=== PATIENT | female | born 1960 | race Caucasian/White ===

== ENCOUNTER → 2016-09-25 | Outpatient (CLI) | payer OTHER ==
[2016-09-25 13:23] LABS: BASO # 0.1 K/mm3 (0.0-0.2); BASO % 1.2 % (0.0-1.0); EOS # 0.2 K/mm3 (0.0-0.50); EOS % 2.2 % (0.0-3.0); LARGE UNSTAINED CELL # 0.2 K/mm3 (0.0-0.4); LARGE UNSTAINED CELL % 2.2 % (0.0-4.0); LYMPH % 37.1 % (24.0-44.0); MEAN CORPUSCULAR HEMOGLOBIN 33.7 pg (27.0-33.0); MEAN CORPUSCULAR HGB CONC 35.3 g/dl (32.0-36.5); MEAN CORPUSCULAR VOLUME 95.5 fl (80.0-96.0); MONO # 0.5 K/mm3 (0.0-0.8); NEUTROPHILS # 4.2 K/mm3 (1.8-7.7); NEUTROPHILS % 51.3 % (36.0-66.0); PLATELET COUNT, AUTOMATED 263 k/mm3 (150-450); RED CELL DISTRIBUTION WIDTH 12.6 % (11.5-14.5); WHITE BLOOD COUNT 8.1 K/mm3 (4.0-10.0)
[2016-09-25 13:35] LABS: ALBUMIN 3.7 GM/DL (3.2-5.2); ALBUMIN/GLOBULIN RATIO 1.12 (1.00-1.93); ALKALINE PHOSPHATASE 111 U/L (45-117); ALT/SGPT 27 U/L (12-78); ANION GAP 8 MEQ/L (8-16); AST/SGOT 19 U/L (15-37); BILIRUBIN,TOTAL 0.5 MG/DL (0.2-1.0); BLOOD UREA NITROGEN 11 MG/DL (7-18); CALCIUM LEVEL 8.6 MG/DL (8.5-10.1); CARBON DIOXIDE LEVEL 27 MEQ/L (21-32); CHLORIDE LEVEL 106 MEQ/L (98-107); CHOLESTEROL LEVEL 240 MG/DL (<200); CREATININE FOR GFR 0.67 MG/DL (0.55-1.02); GLOMERULAR FILTRATION RATE > 60.0 (>51); GLUCOSE, FASTING 94 MG/DL (70-105); SODIUM LEVEL 141 MEQ/L (136-145); TRIGLYCERIDES LEVEL 109 MG/DL (<150)
== END ==
LOC: M WUC 11:23
PROVIDERS: ATTEND Family Medicine
DX: Z00.00 Encounter for general adult medical examination without abnormal findings (principal)

== ENCOUNTER → 2017-11-29 | Outpatient (REF) | payer OTHER ==
[2017-11-29 22:32] LABS: APPEARANCE, URINE CLEAR (CLEAR); BACTERIA, URINE AUTO NEGATIVE (NEGATIVE); BILIRUBIN, URINE AUTO NEGATIVE (NEGATIVE); BLOOD, URINE BLOOD 2+ (NEGATIVE); CALCIUM OXALATE CRYSTALS SMALL; COLOR, URINE YELLOW (YELLOW); GLUCOSE, URINE (UA) AUTO NEGATIVE (NEGATIVE); KETONE, URINE AUTO NEGATIVE (NEGATIVE); LEUKOCYTE ESTERASE, URINE AUTO NEGATIVE (NEGATIVE); NITRITE, URINE AUTO NEGATIVE (NEGATIVE); PROTEIN, URINE AUTO NEGATIVE (NEGATIVE); RBC, URINE AUTO 4 /HPF (0-3); SPECIFIC GRAVITY URINE AUTO 1.017 (1.002-1.035); SQUAMOUS EPITHELIAL CELL UR AU 0 /HPF (0-6); UROBILINOGEN, URINE AUTO 0.2 mg/dL (0.0-2.0); WBC, URINE AUTO 1 /HPF (0-3)
== END ==
LOC: M LAB REF 21:52
DX: N39.0 Urinary tract infection, site not specified (principal)
CPT/HCPCS: 81001

== ENCOUNTER 2018-05-02 10:13 | Day surgery (SDC) | payer OTHER ==
[~2018-05-02] VITALS: Ht 165.1 cm; Wt 78.7 kg
[~2018-05-02 10:13] MED LIST: BUPR150T3; HYOS125TA SL; IBUP200T45 PO; LIDOCAINE 2% INJ 100 MG/5 ML SDV (FOR ANES.) As Ordered ONE; PARO12.5; PROPOFOL 200 MG/20 ML VIAL As Ordered ONE
[2018-05-02] MEDS ORDERED: NS 1,000 ML IV ONE (11:15)
[2018-05-02] MEDS ORDERED: ePHEDrine SULFATE 25 MG/5 ML(5MG/ML) SYRINGE As Ordered ONE (12:04)
--- NOTE | 2018-05-02 12:27 | ROOR ---
Patient Name: Aleida Elaine Procedure Date: 05/02/2018 11:55 AM Date of : 1960 Age: 57 Room: [facility] Gender: Female Note Status: Finalized Procedure: Colonoscopy Indications: High risk colon cancer surveillance: Personal history of colonic polyps Providers: Jose Miguel HERNANDEZ MD Referring MD: TOMMIE SUERO MD Requesting Provider: Medicines: Monitored Anesthesia Care Complications: No immediate complications. Procedure: Pre-Anesthesia Assessment: - The heart rate, respiratory rate, oxygen saturations, blood pressure, adequacy of pulmonary ventilation, and response to care were monitored throughout the procedure. The Colonoscope was introduced through the anus and advanced to the cecum, identified by appendiceal orifice and ileocecal valve. The colonoscopy was somewhat difficult due to a tortuous colon. Successful completion of the procedure was aided by applying abdominal pressure. The patient tolerated the procedure well. The quality of the bowel preparation was good. Findings: The perianal and digital rectal examinations were normal. A 7 mm polyp was found in the mid ascending colon. The polyp was sessile. The polyp was removed with a cold snare. Resection and retrieval were complete. Three sessile polyps were found in the recto-sigmoid colon and sigmoid colon. The polyps were 3 to 5 mm in size. These polyps were removed with a cold snare. Resection and retrieval were complete. Multiple small and large-mouthed diverticula were found in the sigmoid colon. There was narrowing of the colon in association with the diverticular opening. There was evidence of diverticular spasm. Small Internal Hemorrhoids. The exam was otherwise without abnormality on direct and retroflexion views. Impression: - One 7 mm polyp in the mid ascending colon, removed with a cold snare. Resected and retrieved. - Three 3 to 5 mm polyps at the recto-sigmoid colon and in the sigmoid colon, removed with a cold snare. Resected and retrieved. - Moderate diverticulosis (w/ spasm) in the sigmoid colon. - Small Internal Hemorrhoids. - The examination was otherwise normal on direct and retroflexion views. Recommendation: - Telephone endoscopist for pathology results in 2 weeks. - If the pathology report reveals adenomatous tissue, then repeat the colonoscopy for surveillance in 3 - 5 years. - Await pathology results. Jose Miguel Hernandez MD Jose Miguel HERNANDEZ MD 05/02/2018 12:27:16 PM This report has been signed electronically. Number of Addenda: 0 Note Initiated On: 05/02/2018 11:55 AM Estimated Blood Loss: Estimated blood loss: none.
[2018-05-02 12:53] VITALS: BP 96/54
== END 2018-05-02 12:55 | disposition home or self-care (01) ==
LOC: M OPP 10:13
PROVIDERS: ATTEND Internal Medicine Gastroenterology
DX: Z12.11 Encounter for screening for malignant neoplasm of colon (principal); Z86.010 Personal history of colon polyps; D12.2 Benign neoplasm of ascending colon; K63.5 Polyp of colon; K64.8 Other hemorrhoids; K57.30 Diverticulosis of large intestine without perforation or abscess without bleeding; F17.210 Nicotine dependence, cigarettes, uncomplicated; Z79.899 Other long term (current) drug therapy; Z80.3 Family history of malignant neoplasm of breast

== ENCOUNTER → 2018-11-11 | Outpatient (REF) | payer OTHER ==
[~2018-11-11] MED LIST changes: -LIDOCAINE 2% INJ 100 MG/5 ML SDV (FOR ANES.) As Ordered ONE; -PROPOFOL 200 MG/20 ML VIAL As Ordered ONE
[2018-11-15 14:29] LABS: HPV HYBRID CAPTURE II Negative (Negative)
== END ==
LOC: M LAB REF 13:35
PROVIDERS: ATTEND Physician Assistant
DX: Z01.419 Encounter for gynecological examination (general) (routine) without abnormal findings (principal)

== ENCOUNTER → 2018-12-23 | Outpatient (CLI) | payer OTHER ==
[~2018-12-23] MED LIST changes: +E-Z-GAS II EFFERVESCENT PACKET (SODIUM BICARB./CITRIC ACID/SIMETHICONE) As Ordered ONE; +E-Z-HD 98% w/w 340GM SUSP BTL As Ordered ONE; +E-Z-PAQUE 96% w/w SUSP 176GM BTL As Ordered ONE
--- NOTE | 2018-12-23 16:51 | REP ---
DOUBLE CONTRAST ESOPHAGRAM: [employer] film of the chest is unremarkable. Double contrast esophagram is performed. Swallowing mechanism is normal. There is prompt passage of liquid barium through the oropharynx and hypopharynx into the esophagus. The esophagus is well-distended with normal contour, caliber and peristalsis. There is no stricture or mass. There is free flow of barium through the gastroesophageal junction. There is no evidence of a hiatal hernia. I do not see gastroesophageal reflux during this exam. IMPRESSION: Negative esophagram study. 0.7 minutes fluoroscopy time utilized. Electronically Signed by Orlando Ramesh MD 12/26/2018 05:00 P
== END ==
LOC: M RAD 09:22
PROVIDERS: ATTEND Physician Assistant Medical
DX: R30.0 Dysuria (principal)

== ENCOUNTER 2019-04-14 12:46 | Day surgery (SDC) | payer OTHER ==
[~2019-04-14] VITALS: Ht 165.1 cm; Wt 73.4 kg
[~2019-04-14 12:46] MED LIST changes: -E-Z-GAS II EFFERVESCENT PACKET (SODIUM BICARB./CITRIC ACID/SIMETHICONE) As Ordered ONE; -E-Z-HD 98% w/w 340GM SUSP BTL As Ordered ONE; -E-Z-PAQUE 96% w/w SUSP 176GM BTL As Ordered ONE; +ESCI5SOL3 PO; +LIDOCAINE 2% INJ 100 MG/5 ML SDV (FOR ANES.) As Ordered ONE; -PARO12.5; +PARO12.510; +propofoL 200 MG/20 ML VIAL As Ordered ONE
[2019-04-14] MEDS ORDERED: NS 1,000 ML IV ONE (13:45)
--- NOTE | 2019-04-14 14:34 | ROOR ---
Patient Name: Aleida Elaine Procedure Date: 04/14/2019 2:18 PM Date of : 1960 Age: 58 Room: [facility] Gender: Female Note Status: Finalized Procedure: Upper GI endoscopy Indications: Oral phase dysphagia (sensation of food material in left neck, sometimes spits out food particles. No difficulty swallowing, no heartburn. Barium swallow is normal-no evidence of zenker) Providers: Jose Miguel READ MD Referring MD: YULY Landis Requesting Provider: Medicines: Monitored Anesthesia Care Complications: No immediate complications. Procedure: Pre-Anesthesia Assessment: - The heart rate, respiratory rate, oxygen saturations, blood pressure, adequacy of pulmonary ventilation, and response to care were monitored throughout the procedure. The Endoscope was introduced through the mouth, and advanced to the second part of duodenum. The upper GI endoscopy was accomplished without difficulty. The patient tolerated the procedure well. Findings: The esophagus was normal. The stomach was normal. The examined duodenum was normal. Impression: - Normal esophagus. - Normal stomach. - Normal examined duodenum. - No specimens collected. Recommendation: - Observe patient's clinical course. Jose Miguel Read MD Jose Miguel READ MD 04/14/2019 2:34:03 PM Electronically signed by Jose Miguel READ MD Number of Addenda: 0 Note Initiated On: 04/14/2019 2:18 PM Estimated Blood Loss: Estimated blood loss: none.
[2019-04-14 14:40] VITALS: BP 102/55
== END 2019-04-14 15:05 | disposition home or self-care (01) ==
LOC: M OPP 12:46
PROVIDERS: ATTEND Internal Medicine Gastroenterology
DX: R13.11 Dysphagia, oral phase (principal); F17.210 Nicotine dependence, cigarettes, uncomplicated; Z79.899 Other long term (current) drug therapy

== ENCOUNTER → 2020-09-09 | Outpatient (CLI) | payer OTHER ==
[~2020-09-09] MED LIST changes: +BUPR150T12; -BUPR150T3; -LIDOCAINE 2% INJ 100 MG/5 ML SDV (FOR ANES.) As Ordered ONE; -propofoL 200 MG/20 ML VIAL As Ordered ONE
--- NOTE | 2020-09-09 11:31 | REP ---
INDICATION: COUGH AND SHORTNESS OF BREATH. COMPARISON: None. FINDINGS: The superior mediastinal structures are midline. The cardiac silhouette is unremarkable in size, shape, and position. The diaphragmatic surfaces of the lungs are regular, and the costophrenic angles are clear. The pulmonary fritz are clear. The imaged osseous structures are intact. IMPRESSION: There is no acute cardiopulmonary disease. <Electronically signed by Scooby Rome > 09/09/20 [id number]
[2020-09-09 14:55] LABS: ALBUMIN 3.5 GM/DL (3.2-5.2); ALT/SGPT 18 U/L (12-78); BILIRUBIN,TOTAL 0.3 MG/DL (0.2-1.0); BLOOD UREA NITROGEN 13 MG/DL (7-18); CALCIUM LEVEL 8.8 MG/DL (8.5-10.1); CARBON DIOXIDE LEVEL 31 MEQ/L (21-32); CHLORIDE LEVEL 107 MEQ/L (98-107); CHOLESTEROL LEVEL 200 MG/DL (<200); CREATININE FOR GFR 0.59 MG/DL (0.55-1.30); GLOMERULAR FILTRATION RATE > 60.0 (>51); GLUCOSE, FASTING 121 MG/DL (70-100); HDL CHOLESTEROL 66 MG/DL (>40); LDL CHOLESTEROL 109 MG/DL (<100); NON-HDL-C 134 MG/DL; SODIUM LEVEL 142 MEQ/L (136-145); TOTAL PROTEIN 6.8 GM/DL (6.4-8.2); TRIGLYCERIDES LEVEL 127 MG/DL (<150)
[2020-09-09 15:12] LABS: BASO # 0.1 10^3/uL (0.0-0.2); BASO % 0.7 % (0.0-1.0); EOS # 0.3 10^3/uL (0.0-0.5); EOS % 3.2 % (0.0-3.0); HEMATOCRIT 45.7 % (36.0-47.0); HEMOGLOBIN 14.7 g/dl (12.0-15.5); LYMPH # 2.8 10^3/uL (1.5-5.0); LYMPH % 33.5 % (24.0-44.0); MEAN CORPUSCULAR HGB CONC 32.2 g/dl (32.0-36.5); MEAN CORPUSCULAR VOLUME 99.6 fl (80.0-96.0); MONO # 0.7 10^3/uL (0.0-0.8); MONO % 8.7 % (2.0-8.0); NEUTROPHILS # 4.5 10^3/uL (1.5-8.5); NEUTROPHILS % 53.7 % (36.0-66.0); PLATELET COUNT, AUTOMATED 283 10^3/uL (150-450); RED BLOOD COUNT 4.59 10^6/uL (4.00-5.40); WHITE BLOOD COUNT 8.4 10^3/uL (4.0-10.0)
== END ==
LOC: M WUC 10:26
PROVIDERS: ATTEND Nurse Practitioner Family
DX: R05 Cough (principal); R06.02 Shortness of breath; E78.2 Mixed hyperlipidemia

== ENCOUNTER → 2020-10-08 | Outpatient (CLI) | payer OTHER ==
--- NOTE | 2020-10-08 15:41 | REP ---
INDICATION: NICOTINE DEPEND. COMPARISON: Chest x-ray 09/09/2020 TECHNIQUE: Low-dose CT lung screening protocol FINDINGS: There is a 3.9 mm nodule subpleural region right upper lobe on image 21 scattered small areas of ground-glass opacity are seen in the right mid upper lung zone, the largest on image 30 measuring 9.7 mm. Some minor dependent atelectatic changes in the deep sulcus of the right lung otherwise clear. The medial aspect left upper lobe on image 19 shows a 5 mm ground-glass opacity without solid component. I do not see other significant findings on the left side. IMPRESSION: 1. 4 mm nodule subpleural right upper lobe anterolaterally on image 21 and some bilateral ground-glass opacities right mid and left upper lobe ranging from 4-6 mm. Findings represent lung RADS category 2 benign, benign findings. No evidence of malignancy. Patients with this category of scan findings have less than 1% chance of malignancy at the time of the examination. For patients at high risk of development of lung cancer, low-dose CT lung screening annually recommended. <Electronically signed by Jj Pham > 10/08/20 [id number]
== END ==
LOC: M RAD 13:45
PROVIDERS: ATTEND Nurse Practitioner Family
DX: Z12.2 Encounter for screening for malignant neoplasm of respiratory organs (principal); F17.200 Nicotine dependence, unspecified, uncomplicated; R91.8 Other nonspecific abnormal finding of lung field

== ENCOUNTER → 2020-10-15 | Outpatient (CLI) | payer OTHER ==
[2020-10-15 20:12] LABS: BASO # 0.1 10^3/uL (0.0-0.2); BASO % 0.8 % (0.0-1.0); EOS # 0.2 10^3/uL (0.0-0.5); EOS % 2.3 % (0.0-3.0); HEMATOCRIT 44.8 % (36.0-47.0); HEMOGLOBIN 14.7 g/dl (12.0-15.5); LYMPH # 3.5 10^3/uL (1.5-5.0); LYMPH % 39.4 % (24.0-44.0); MEAN CORPUSCULAR HEMOGLOBIN 31.9 pg (27.0-33.0); MEAN CORPUSCULAR HGB CONC 32.8 g/dl (32.0-36.5); MEAN CORPUSCULAR VOLUME 97.2 fl (80.0-96.0); MONO # 0.8 10^3/uL (0.0-0.8); MONO % 8.7 % (2.0-8.0); NEUTROPHILS # 4.3 10^3/uL (1.5-8.5); NEUTROPHILS % 48.6 % (36.0-66.0); PLATELET COUNT, AUTOMATED 295 10^3/uL (150-450); RED BLOOD COUNT 4.61 10^6/uL (4.00-5.40); WHITE BLOOD COUNT 8.8 10^3/uL (4.0-10.0)
[2020-10-15 20:29] LABS: ALBUMIN 3.7 GM/DL (3.2-5.2); ALT/SGPT 68 U/L (12-78); AMYLASE 66 U/L (25-115); BILIRUBIN,TOTAL 0.3 MG/DL (0.2-1.0); BLOOD UREA NITROGEN 14 MG/DL (7-18); CALCIUM LEVEL 8.7 MG/DL (8.5-10.1); CARBON DIOXIDE LEVEL 31 MEQ/L (21-32); CHLORIDE LEVEL 105 MEQ/L (98-107); GLOMERULAR FILTRATION RATE > 60.0 (>51); GLUCOSE, FASTING 126 MG/DL (70-100); LIPASE 180 U/L (73-393); POTASSIUM SERUM 3.8 MEQ/L (3.5-5.1); SODIUM LEVEL 140 MEQ/L (136-145); TOTAL PROTEIN 6.9 GM/DL (6.4-8.2)
== END ==
LOC: M WUC 15:56
PROVIDERS: ATTEND Nurse Practitioner Family
DX: R10.11 Right upper quadrant pain (principal)

== ENCOUNTER → 2020-10-28 | Outpatient (CLI) | payer OTHER ==
[~2020-10-28] MED LIST changes: +ADV250INH INH; +ALBU8.5H INH; +FLUTISP INH; -IBUP200T45 PO; +IBUP200T46 PO; -PARO12.510; +PARO12.56; +XANA0.25 PO
== END ==
LOC: M RAD 07:40
PROVIDERS: ATTEND Nurse Practitioner Family
DX: K80.20 Calculus of gallbladder without cholecystitis without obstruction (principal); R10.11 Right upper quadrant pain

== ENCOUNTER → 2021-01-01 | Outpatient (CLI) | payer OTHER ==
[~2021-01-01] MED LIST changes: +IBUP200T45 PO; -IBUP200T46 PO; +PARO12.510; -PARO12.56
== END ==
LOC: M LABSMTC 09:21
PROVIDERS: ATTEND Anesthesiology
DX: Z01.812 Encounter for preprocedural laboratory examination (principal); Z11.52 Encounter for screening for COVID-19

== ENCOUNTER 2021-01-06 10:47 | Day surgery (SDC) | payer OTHER ==
[~2021-01-06] VITALS: Ht 165.1 cm; Wt 84.7 kg
[~2021-01-06 10:47] MED LIST changes: -IBUP200T45 PO; +IBUP200T46 PO; +KETOROLAC 60MG 2ML VIAL As Ordered ONE; +LIDOCAINE 1% MDV 20ML VIAL SQ PRN; +LR 1,000 ML IV ONE; +SUGAMMADEX SODIUM 500 MG/5 ML VIAL (BRIDION) As Ordered ONE
--- OUTSIDE RECORDS SUMMARY | 2021-01-06 10:51 | CCD ---
Author Author [facility] Organization [facility] Address Unknown Phone Unavailable Care Team Providers Care Tie Cutter Name Role Phone Nagi Nemaha Latha PA-C Unavailable Unavailabl e Petrancosta, Nemaha Latha PA-C Unavailable Unavailabl e Petrancosta, Nemaha Latha PA-C Unavailable Unavailabl e Petrancosta, Nemaha Latha PA-C Unavailable Unavailabl e Petrancosta, Nemaha Latha PA-C Unavailable Unavailabl e Petrancosta, Nemaha Latha PA-C Unavailable Unavailabl e Petrancosta, Nemaha Latha PA-C Unavailable Unavailabl e Petrancosta, Nemaha Latha PA-C Unavailable Unavailabl e Petrancosta, Nemaha Latha PA-C Unavailable Unavailabl e Petrancosta, Nemaha Latha PA-C Unavailable Unavailabl e Petrancosta, Nemaha Latha PA-C Unavailable Unavailabl e Petrancosta, Nemaha Latha PA-C Unavailable Unavailabl e Petrancosta, Nemaha Latha PA-C Unavailable Unavailabl e Petrancosta, Nemaha Latha PA-C Unavailable Unavailabl e Petrancosta, Nemaha Latha PA-C Unavailable Unavailabl e Petrancosta, Nemaha Latha PA-C Unavailable Unavailabl e Petrancosta, Nemaha Latha PA-C Unavailable Unavailabl e Petrancosta, Nemaha Latha PA-C Unavailable Unavailabl e Petrancosta, Nemaha Latha PA-C Unavailable Unavailabl e Petrancosta, Nemaha Latha PA-C Unavailable Unavailabl e Petrancosta, Nemaha Latha PA-C Unavailable Unavailabl e Petrancosta, Nemaha Latha PA-C Unavailable Unavailabl e Petrancosta, Nemaha Latha PA-C Unavailable Unavailabl e Petrancosta, Nemaha Latha PA-C Unavailable Unavailabl e Petrancosta, Nemaha Latha PA-C Unavailable Unavailabl e Pleskach, Jeana MEAT GRINDER Unavailable Unavailable Pleskach, Jeana MEAT GRINDER Unavailable Unavailable Pleskach, Jeana MEAT GRINDER Unavailable Unavailable Pleskach, Jeana MEAT GRINDER Unavailable Unavailable Pleskach, Jeana MEAT GRINDER Unavailable Unavailable Pleskach, Jeana MEAT GRINDER Unavailable Unavailable Pleskach, Jeana MEAT GRINDER Unavailable Unavailable Pleskach, Jeana MEAT GRINDER Unavailable Unavailable Pleskach, Jeana MEAT GRINDER Unavailable Unavailable Pleskach, Jeana MEAT GRINDER Unavailable Unavailable Pleskach, Jeana MEAT GRINDER Unavailable Unavailable Pleskach, Jeana MEAT GRINDER Unavailable Unavailable Pleskach, Jeana MEAT GRINDER Unavailable Unavailable Pleskach, Jeana MEAT GRINDER Unavailable Unavailable Pleskach, Jeana MEAT GRINDER Unavailable Unavailable Pleskach, Jeana MEAT GRINDER Unavailable Unavailable Pleskach, Jeana MEAT GRINDER Unavailable Unavailable Pleskach, Jeana MEAT GRINDER Unavailable Unavailable Pleskach, Jeana MEAT GRINDER Unavailable Unavailable Pleskach, Jeana MEAT GRINDER Unavailable Unavailable Pleskach, Jeana MEAT GRINDER Unavailable Unavailable Pleskach, Jeana MEAT GRINDER Unavailable Unavailable Pleskach, Jeana MEAT GRINDER Unavailable Unavailable Pleskach, Jeana MEAT GRINDER Unavailable Unavailable Pleskach, Jeana MEAT GRINDER Unavailable Unavailable Pleskach, Jeana MEAT GRINDER Unavailable Unavailable Pleskach, Jeana MEAT GRINDER Unavailable Unavailable Pleskach, Jeana MEAT GRINDER Unavailable Unavailable Pleskach, Jeana MEAT GRINDER Unavailable Unavailable Pleskach, Jeana MEAT GRINDER Unavailable Unavailable Pleskach, Jeana MEAT GRINDER Unavailable Unavailable Pleskach, Jeana MEAT GRINDER Unavailable Unavailable Pleskach, Jeana MEAT GRINDER Unavailable Unavailable Pleskach, Jeana MEAT GRINDER Unavailable Unavailable Pleskach, Jeana MEAT GRINDER Unavailable Unavailable Pleskach, Jeana MEAT GRINDER Unavailable Unavailable Pleskach, Jeana MEAT GRINDER Unavailable Unavailable Pleskach, Jeana MEAT GRINDER Unavailable Unavailable Pleskach, Jeana MEAT GRINDER Unavailable Unavailable Pleskach, Jeana MEAT GRINDER Unavailable Unavailable Pleskach, Jeana MEAT GRINDER Unavailable Unavailable Pleskach, Jeana MEAT GRINDER Unavailable Unavailable BRYDEN, A PALLAVI DO Unavailable Unavailable BRYDEN, A PALLAVI DO Unavailable Unavailable BRYDEN, A PALLAVI DO Unavailable Unavailable BRYDEN, A PALLAVI DO Unavailable Unavailable BRYDEN, A PALLAVI DO Unavailable Unavailable BRYDEN, A PALLAVI DO Unavailable Unavailable BRYDEN, A PALLAVI DO Unavailable Unavailable BRYDEN, A PALLAVI DO Unavailable Unavailable BRYDEN, A PALLAVI DO Unavailable Unavailable BRYDEN, A PALLAVI DO Unavailable Unavailable BRYDEN, A PALLAVI DO Unavailable Unavailable BRYDEN, A PALLAVI DO Unavailable Unavailable BRYDEN, A PALLAVI DO Unavailable Unavailable BRYDEN, A PALLAVI DO Unavailable Unavailable BRYDEN, A PALLAVI DO Unavailable Unavailable BRYDEN, A PALLAVI DO Unavailable Unavailable BRYDEN, A PALLAVI DO Unavailable Unavailable BRYDEN, A PALLAVI DO Unavailable Unavailable BRYDEN, A PALLAVI DO Unavailable Unavailable BRYDEN, A PALLAVI DO Unavailable Unavailable BRYDEN, A PALLAVI DO Unavailable Unavailable BRYDEN, A PALLAVI DO Unavailable Unavailable BRYDEN, A PALLAVI DO Unavailable Unavailable BRYDEN, A PALLAVI DO Unavailable Unavailable BRYDEN, A PALLAVI DO Unavailable Unavailable BRYDEN, A PALLAVI DO Unavailable Unavailable BRYDEN, A PALLAVI DO Unavailable Unavailable BRYDEN, A PALLAVI DO Unavailable Unavailable BRYDEN, A PALLAVI DO Unavailable Unavailable Johnston, M Christopher PA-C Unavailable Unavailable Johnston, M Christopher PA-C Unavailable Unavailable Johnston, M Christopher PA-C Unavailable Unavailable Johnston, M Christopher PA-C Unavailable Unavailable Johnston, M Christopher PA-C Unavailable Unavailable Johnston, M Christopher PA-C Unavailable Unavailable Johnston, M Christopher PA-C Unavailable Unavailable Johnston, M Christopher PA-C Unavailable Unavailable Johnston, M Christopher PA-C Unavailable Unavailable Johnston, M Christopher PA-C Unavailable Unavailable Johnston, M Christopher PA-C Unavailable Unavailable Johnston, M Christopher PA-C Unavailable Unavailable Johnston, M Christopher PA-C Unavailable Unavailable Johnston, M Christopher PA-C Unavailable Unavailable Johnston, M Christopher PA-C Unavailable Unavailable Johnston, M Christopher PA-C Unavailable Unavailable Johnston, M Christopher PA-C Unavailable Unavailable Johnston, M Christopher PA-C Unavailable Unavailable Johnston, M Christopher PA-C Unavailable Unavailable Johnston, M Christopher PA-C Unavailable Unavailable Johnston, Edda Christopher PA-C Unavailable Unavailable Johnston, M Christopher PA-C Unavailable Unavailable Johnston, M Christopher PA-C Unavailable Unavailable Johnston, M Christopher PA-C Unavailable Unavailable Johnston, M Christopher PA-C Unavailable Unavailable Johnston, M Christopher PA-C Unavailable Unavailable Re-disclosure Warning The records that you are about to access may contain information from federally-assisted alcohol or drug abuse programs. If such information is present, then the following federally mandated warning applies: This information has been disclosed to you from records protected by federal confidentiality rules (42 CFR part 2). The federal rules prohibit you from making any further disclosure of this information unless further disclosure is expressly permitted by the written consent of the person to whom it pertains or as otherwise permitted by 42 CFR part 2. A general authorization for the release of medical or other information is NOT sufficient for this purpose. The Federal rules restrict any use of the information to criminally investigate or prosecute any alcohol or drug abuse patient.The records that you are about to access may contain highly sensitive health information, the redisclosure of which is protected by Article 27-F of the [facility] Public Health law. If you continue you may have access to information: Regarding HIV / AIDS; Provided by facilities licensed or operated by the [facility] Office of Mental Health; or Provided by the [facility] Office for People With Developmental Disabilities. If such information is present, then the following [facility] mandated warning applies: This information has been disclosed to you from confidential records which are protected by state law. State law prohibits you from making any further disclosure of this information without the specific written consent of the person to whom it pertains, or as otherwise permitted by law. Any unauthorized further disclosure in violation of state law may result in a fine or long-term sentence or both. A general authorization for the release of medical or other information is NOT sufficient authorization for further disc losure. Family History Family Member Name Family Member Gender Family Member Status Date o f Status Description Data Source(s) Unknown Unknown Problem [facility] ([facility], ) Unknown Unknown Problem [facility] ([facility] Encounters Encounter Providers Location Date Indications Data Source(s ) Outpatient Attender: Jeana Cotton [facility] Main Office 12/24/2020 0 8:45:00 AM EDT [facility] ([facility] Outpatient Attender: Christopher Johnston PA-C 12/04/2020 03:24:44 PM EDT - 12/04/2020 04:51:12 PM EDT [facility] ([facility]) Outpatient Attender: PALLAVI Forbes/Magdalene/Jaime/Derek ndl 11/12/2020 02:45:00 PM EDT [facility] ([facility], ) Outpatient Attender: Jeana Cotton [facility] Main Office 10/15/2020 0 1:45:00 PM EDT [facility] ([facility] Outpatient Attender: Jeana Cotton [facility] Main Office 09/09/2020 0 8:00:00 AM EDT [facility] ([facility] Outpatient Attender: Latha Lazar PA-C Main Office 06/17/2020 03:30:00 PM EDT [facility] ([facility] Outpatient Attender: Jeana Cotton [facility] Main Office 05/22/2020 0 3:00:00 PM EST [facility] ([facility] Outpatient Attender: Jeana Cotton [facility] Main Office 03/06/2020 0 7:00:00 AM EST [facility] ([facility] Outpatient Attender: Jeana Cotton [facility] Main Office 12/26/2019 0 8:15:00 AM EDT [facility] ([facility] Outpatient Attender: Jeana Cotton [facility] Main Office 11/23/2019 1 0:30:00 AM EDT [facility] ([facility] Immunizations Vaccine Date Status Description Data Source(s) Pfizer-Sars-(Covid-19) vaccine, mRNA, LNP-S, PF, 30 mc g/ 0.3 mL 05/09/2020 02:56:00 PM EST completed [facility] COVID-19 VACCINE Pfizer 05/09/2020 12:00:00 AM EST completed [facility] Vaccine Series Complete: YESThis Data wa s Submitted to [facility] Via [employer]. Pfizer-Sars-(Covid-19) vaccine, mRNA, LNP-S, PF, 30 mc g/ 0.3 mL 04/11/2020 02:56:00 PM EST completed [facility] COVID-19 VACCINE Pfizer 04/11/2020 12:00:00 AM EST completed [facility] Vaccine Series Complete: NOThis Data was Submitted to [facility] [employer]. New in 2012. IIV4 12/26/2019 08:27:00 AM EDT completed [facility] ([facility] pneumococcal polysaccharide PPV23 11/23/2019 11:03:00 AM EDT comple chris [facility] ([facility] Medications Medication Brand Name Start Date Product Form Dose Route Admi nistrative Instructions Pharmacy Instructions Status Indications Reaction Description Data Source(s) Fluticasone Propionate Fluticasone Propionate 09/09/2020 12:00:00 AM E DT active [facility] ([facility] Escitalopram 20 MG Oral Tablet ESCITALOPRAM OXALATE 08/13/2020 1 2:00:00 AM EDT tablet 30 TAKE ONE TABLET BY MOUTH EVERY D AY TAKE ONE TABLET BY MOUTH EVERY DAY SOLD: 08/13/2020 [facility] Azithromycin 250 MG Oral Tablet AZITHROMYCIN 06/17/2020 12:00:00 AM EDT tablet 6 TAKE TWO TABLETS BY MOUTH AT ONCE ON THE FIRST DAY THEN TAKE ONE DAILY THEREAFTER TAKE TWO TABLETS BY MOUTH AT ONCE ON THE FIRST DAY THEN TAKE ONE DAILY THEREAFTER SOLD: 06/17/2020 [facility] Azithromycin 250 MG Oral Tablet Azithromycin 06/17/2020 12:00:00 AM E DT ORAL completed [facility] ([facility] Alprazolam 0.25 MG Oral Tablet ALPRAZOLAM 05/22/2020 12:00:00 AM EST tablet 10 TAKE 1/2 TABLET BY MOUTH NEEDED FOR A NXIETY UP TO TWICE DAILY MAXIMUM DAILY DOSE = 1 TAKE 1/2 TABLET BY MOUTH NEEDED FOR A NXIETY UP TO TWICE DAILY MAXIMUM DAILY DOSE = 1 SOLD: 05/22/2020 [facility] 100 mg 02/08/2020 12:00:00 AM EST tablet 14 TAKE ONE TABLET BY MOUTH TWICE A DAY FOR 7 DAYS TAKE ONE TABLET BY MOUTH TWICE A DAY FOR 7 DAYS SOLD: 2019 [facility] Ciprofloxacin 3 MG/ML Ophthalmic Solution Ciprofloxacin HCL 12/26/2019 12:00:00 AM EDT OPHTHALMIC completed [facility] ([facility] 0.3 % 12/26/2019 12:00:00 AM EDT drops 5 INSTILL 1-2 DROPS INTO THE RIGHT EYE 5 TIMES A DAY FOR 5 DAYS INSTILL 1-2 DROPS INTO THE RIGHT EYE 5 T IMES A DAY FOR 5 DAYS SOLD: 12/26/2019 [facility] 24 HR Bupropion Hydrochloride 150 MG Extended Release Oral T ablet BUPROPION HCL 11/23/2019 12:00:00 AM EDT tablet extended release 24 hr 60 TAKE ONE TABLET BY MOUTH TWICE A DAY TAKE ONE TABLET BY MOUTH TWICE A DAY SOLD: 11/29/2019 [facility] Escitalopram 20 MG Oral Tablet ESCITALOPRAM OXALATE 11/23/2019 1 2:00:00 AM EDT tablet 30 TAKE ONE TABLET BY MOUTH EVERY D AY TAKE ONE TABLET BY MOUTH EVERY DAY SOLD: 02/20/2020 [facility] 24 HR Bupropion Hydrochloride 150 MG Extended Release Oral T ablet BUPROPION HCL 11/23/2019 12:00:00 AM EDT tablet extended release 24 hr 60 TAKE ONE TABLET BY MOUTH TWICE A DAY TAKE ONE TABLET BY MOUTH TWICE A DAY SOLD: 05/09/2020 [facility] 250-50 mcg/dose 11/23/2019 12:00:00 AM EDT blister with viky ce 60 INHALE ONE PUFF BY MOUTH TWICE A DAY INHALE ONE PUFF BY MOUTH TWICE A DAY SOLD: 11/29/2019 [facility] Escitalopram 20 MG Oral Tablet ESCITALOPRAM OXALATE 11/23/2019 1 2:00:00 AM EDT tablet 30 TAKE ONE TABLET BY MOUTH EVERY D AY TAKE ONE TABLET BY MOUTH EVERY DAY SOLD: 05/09/2020 [facility] 60 ACTUAT Fluticasone propionate 0.25 MG /ACTUAT / salmeterol 0.05 MG/ACTUAT Dry Powder Inhaler [Advair] 250-50 mcg/dose FLUTICASONE PROPION/SALMETEROL 11/23/2019 12:00:00 AM EDT blister with device 60 I NHALE ONE PUFF BY MOUTH TWICE A DAY INHALE ONE PUFF BY MOUTH TWICE A DAY SOLD: 08/13/2020 [facility] 24 HR Bupropion Hydrochloride 150 MG Extended Release Oral T ablet BUPROPION HCL 11/23/2019 12:00:00 AM EDT tablet extended release 24 hr 60 TAKE ONE TABLET BY MOUTH TWICE A DAY TAKE ONE TABLET BY MOUTH TWICE A DAY SOLD: 02/20/2020 [facility] Escitalopram 20 MG Oral Tablet ESCITALOPRAM OXALATE 11/23/2019 1 2:00:00 AM EDT tablet 30 TAKE ONE TABLET BY MOUTH EVERY D AY TAKE ONE TABLET BY MOUTH EVERY DAY SOLD: 01/11/2020 [facility] Escitalopram 20 MG Oral Tablet ESCITALOPRAM OXALATE 11/23/2019 1 2:00:00 AM EDT tablet 30 TAKE ONE TABLET BY MOUTH EVERY D AY TAKE ONE TABLET BY MOUTH EVERY DAY SOLD: 11/29/2019 [facility] Escitalopram 20 MG Oral Tablet Escitalopram Oxalate 11/23/2019 1 2:00:00 AM EDT ORAL active [facility] ( [facility] 24 HR Bupropion Hydrochloride 150 MG Extended Release Oral T ablet BUPROPION HCL 11/23/2019 12:00:00 AM EDT tablet extended release 24 hr 60 TAKE ONE TABLET BY MOUTH TWICE A DAY TAKE ONE TABLET BY MOUTH TWICE A DAY SOLD: 04/01/2020 [facility] 24 HR Bupropion Hydrochloride 150 MG Extended Release Oral T ablet BUPROPION HCL 11/23/2019 12:00:00 AM EDT tablet extended release 24 hr 60 TAKE ONE TABLET BY MOUTH TWICE A DAY TAKE ONE TABLET BY MOUTH TWICE A DAY SOLD: 08/13/2020 [facility] Escitalopram 20 MG Oral Tablet ESCITALOPRAM OXALATE 11/23/2019 1 2:00:00 AM EDT tablet 30 TAKE ONE TABLET BY MOUTH EVERY D AY TAKE ONE TABLET BY MOUTH EVERY DAY SOLD: 06/22/2020 [facility] Escitalopram 20 MG Oral Tablet ESCITALOPRAM OXALATE 11/23/2019 1 2:00:00 AM EDT tablet 30 TAKE ONE TABLET BY MOUTH EVERY D AY TAKE ONE TABLET BY MOUTH EVERY DAY SOLD: 04/01/2020 [facility] 24 HR Bupropion Hydrochloride 150 MG Extended Release Oral T ablet BUPROPION HCL 11/23/2019 12:00:00 AM EDT tablet extended release 24 hr 60 TAKE ONE TABLET BY MOUTH TWICE A DAY TAKE ONE TABLET BY MOUTH TWICE A DAY SOLD: 01/11/2020 [facility] 250-50 mcg/dose 11/23/2019 12:00:00 AM EDT blister with viky ce 60 INHALE ONE PUFF BY MOUTH TWICE A DAY INHALE ONE PUFF BY MOUTH TWICE A DAY SOLD: 05/09/2020 [facility] Cephalexin 500 MG Oral Tablet Cephalexin 09/05/2019 12:00:00 AM EDT ORAL completed [facility] ([facility] Insurance Providers Payer name Policy type / Coverage type Policy ID Covered democrat ID Covered democrat's relationship to herrera Policy Herrera Plan Information [employer] [id number] Self [id number] [employer] [facility] [place] [id number] S [id number] [facility] [employer] Commercial [id number] Self [id number] [employer] [facility] [place] [id number] SP [id number] [facility] [id number] Self [id number] [facility] [employer] [facility] Commercial [id number] Self [id number] [facility] Commercial [id number] Self [id number] [facility] Commercial [id number] Self [id number] [facility] [id number] Self [id number] [facility] [id number] Self [id number] [employer] [id number] S [id number] [facility] [employer] [facility] Commercial [id number] Self [id number] [facility] [employer] Commercial [id number] Self [id number] [facility] Commercial [id number] Self [id number] [facility] Commercial [id number] Self [id number] [facility] [employer] [facility] Commercial [id number] Self [facility] [id number] SP [id number] Problems, Conditions, and Diagnoses Code Display Name Description Problem Type Effective Dates Data Source(s) J44.9 Chronic obstructive lung disease Chronic obstructive l checo disease Problem 03/06/2020 12:00:00 AM EST [facility] ([facility] Surgeries/Procedures Procedure Description Date Indications Data Source(s) OFFICE OUTPATIENT VISIT 25 MINUTES 12/24/2020 12:00:00 AM EDT [facility] ([facility] OFFICE OUTPATIENT NEW 45 MINUTES 11/12/2020 12:00:00 A M EDT [facility] ([facility], ) OFFICE OUTPATIENT VISIT 25 MINUTES 10/15/2020 12:00:00 AM EDT [facility] ([facility] ECG ROUTINE ECG W/LEAST 12 LDS W/I&R 09/09/2020 12:00: 00 AM EDT [facility] ([facility] OFFICE OUTPATIENT VISIT 25 MINUTES 09/09/2020 12:00:00 AM EDT [facility] ([facility] OFFICE OUTPATIENT VISIT 15 MINUTES 06/17/2020 12:00:00 AM EDT [facility] ([facility] OFFICE OUTPATIENT VISIT 15 MINUTES 05/22/2020 12:00:00 AM EST [facility] ([facility] Brief Emotional/Behav Assessment W/ Scoring Doc Per Standard Inst 11/23/2019 12:00:00 AM EDT [facility] ([facility] Results ID Date Data Source [id number] 12/04/2020 03:30:00 PM EDT [facility] Name Value Range Interpretation Code Description Data Jennifer rce(s) Supporting Document(s) SARS-CoV-2 RNA Resp Ql ADELSO+probe NOT DETECTED [facility] This lab was ordered by MICHAEL johnson and reported by MICHAEL Da Silva. ID Date Data Source [id number] 10/15/2020 03:57:00 PM EDT [facility] ([facility] Name Value Range Interpretation Code Description Data Jennifer rce(s) Supporting Document(s) Amylase [Enzymatic activity/volume] in Serum or Plasma 66 U/L 25- 115 [facility] ([facility] Lipoprotein lipase [Enzymatic activity/volume] in Serum or P lasma 180 U/L 73-393 [facility] ([facility] ID Date Data Source [id number] 10/15/2020 03:57:00 PM EDT [facility] ([facility] Name Value Range Interpretation Code Description Data Jennifer rce(s) Supporting Document(s) White Blood Count 8.8 10 4.0-10.0 [facility] ([facility] Red Blood Count 4.61 10 4.00-5.40 [facility] ([facility] Hemoglobin 14.7 g/dL 12.0-15.5 [facility] ([facility] Mean Corpuscular Hemoglobin 31.9 pg 27.0-33.0 [facility] ([facility] Mean Corpuscular Volume 97.2 fl 80.0-96.0 M [facility] ([facility] Hematocrit 44.8 % 36.0-47.0 [facility] ([facility] Red Cell Distribution Width 13.2 % 11.5-14.5 [facility] ([facility] Mean Corpuscular HGB Conc 32.8 g/dL 32.0-36.5 [facility] ([facility] Platelet Count, Automated 295 10 150-450 [facility] ([facility] [place] % 8.7 % 2.0-8.0 [facility] ([facility] Neutrophils % 48.6 % 36.0-66.0 [facility] ([facility] Lymph % 39.4 % 24.0-44.0 [facility] Eos % 2.3 % 0.0-3.0 [facility] ([facility] Immature Granulocyte % 0.2 % 0-3.0 [facility] ([facility] Baso % 0.8 % 0.0-1.0 [facility] ([facility] Lymph # 3.5 10 1.5-5.0 [facility] Neutrophils # 4.3 10 1.5-8.5 [facility] ([facility] Nucleated Red Blood Cell % 0.0 % 0-0 [facility] ([facility] Eos # 0.2 10 0.0-0.5 [facility] [place] # 0.8 10 0.0-0.8 [facility] ([facility] Baso # 0.1 10 0.0-0.2 [facility] ([facility] ID Date Data Source [id number] 10/15/2020 03:57:00 PM EDT [facility] ([facility] Name Value Range Interpretation Code Description Data Jennifer rce(s) Supporting Document(s) Glucose, Fasting 126 mg/dL 70-100 [facility] ([facility] Blood Urea Nitrogen 14 mg/dL 7-18 [facility] ([facility] Creatinine For GFR 0.80 mg/dL 0.55-1.30 [facility] ([facility] Glomerular Filtration Rate Laboratory test result [facility] ([facility] <content>Units are mL/min/1.73 m2</content>
<content></content>
<content>Chronic Kidney Disease Staging per NKF:</content>
<content></content>
<content>Stage I & II GFR >=60 Normal to Mildly Decreased</content>
<content>Stage III GFR 30-59 Moderately Decreased</content>
<content>Stage IV GFR 15-29 Severely Decreased</content>
<content>Stage V GFR <15 Very Little GFR Left</content>
<content>ESRD GFR <15 on [employer]</content>
<content></content> Potassium Serum 3.8 meq/L 3.5-5.1 [facility] ([facility] Chloride Level 105 meq/L 98-107 [facility] ([facility] Sodium Level 140 meq/L 136-145 [facility] ([facility] Calcium Level 8.7 mg/dL 8.5-10.1 [facility] ([facility] Anion Gap 4 meq/L 8-16 [facility] ([facility] Carbon Dioxide Level 31 meq/L 21-32 [facility] ([facility] Ast/Sgot 20 U/L 7-37 [facility] Alt/SGPT 68 U/L 12-78 [facility] Total Protein 6.9 GM/DL 6.4-8.2 [facility] ([facility] Bilirubin,Total 0.3 mg/dL 0.2-1.0 [facility] ([facility] Alkaline Phosphatase 101 U/L 45-117 [facility] ([facility] Albumin 3.7 GM/DL 3.2-5.2 [facility] ([facility] Albumin/Globulin Ratio 1.2 1.2-2.2 [facility] ([facility] ID Date Data Source [id number] 09/09/2020 10:27:00 AM EDT [facility] ([facility] Name Value Range Interpretation Code Description Data Jennifer rce(s) Supporting Document(s) Cholesterol Level 200 mg/dL [facility] ([facility] Triglycerides Level 127 mg/dL [facility] ([facility] LDL Cholesterol 109 mg/dL [facility] ([facility] HDL Cholesterol 66 mg/dL [facility] ([facility] Non-HDL-C 134 mg/dL [facility] Cholesterol Risk Ratio 3.030 [facility] ([facility] ID Date Data Source [id number] 09/09/2020 10:27:00 AM EDT [facility] ([facility] [facility] Name Value Range Interpretation Code Description Data Jennifer e(s) Supporting Document(s) Glucose, Fasting 121 mg/dL 70-100 [facility] ([facility] Blood Urea Nitrogen 13 mg/dL 7-18 [facility] ([facility] Creatinine For GFR 0.59 mg/dL 0.55-1.30 [facility] ([facility] Glomerular Filtration Rate Laboratory test result [facility] ([facility] <content>Units are mL/min/1.73 m2</content>
<content></content>
<content>Chronic Kidney Disease Staging per NKF:</content>
<content></content>
<content>Stage I & II GFR >=60 Normal to Mildly Decreased</content>
<content>Stage III GFR 30-59 Moderately Decreased</content>
<content>Stage IV GFR 15-29 Severely Decreased</content>
<content>Stage V GFR <15 Very Little GFR Left</content>
<content>ESRD GFR <15 on [employer]</content>
<content></content> Carbon Dioxide Level 31 meq/L 21-32 [facility] ([facility]st [facility] Potassium Serum 4.0 meq/L 3.5-5.1 [facility] ([facility] Sodium Level 142 meq/L 136-145 [facility] ([facility] Chloride Level 107 meq/L 98-107 [facility] ([facility] Anion Gap 4 meq/L 8-16 [facility] ([facility] Ast/Sgot 17 U/L 7-37 [facility] ([facility] Calcium Level 8.8 mg/dL 8.5-10.1 [facility] ([facility] Bilirubin,Total 0.3 mg/dL 0.2-1.0 [facility] ([facility] Alkaline Phosphatase 100 U/L 45-117 [facility] ([facility] Alt/SGPT 18 U/L 12-78 [facility] ([facility] Total Protein 6.8 GM/DL 6.4-8.2 [facility] ([facility] Albumin 3.5 GM/DL 3.2-5.2 [facility] ([facility] Albumin/Globulin Ratio 1.1 1.2-2.2 [facility] ([facility] ID Date Data Source [id number] 09/09/2020 10:27:00 AM EDT [facility] ([facility] Name Value Range Interpretation Code Description Data Jennifer rce(s) Supporting Document(s) White Blood Count 8.4 10 4.0-10.0 [facility] ([facility]sey [facility] Red Blood Count 4.59 10 4.00-5.40 [facility] ([facility] Hemoglobin 14.7 g/dL 12.0-15.5 [facility] ([facility] Hematocrit 45.7 % 36.0-47.0 [facility] ([facility] Mean Corpuscular Hemoglobin 32.0 pg 27.0-33.0 [facility] ([facility] Mean Corpuscular Volume 99.6 fl 80.0-96.0 M [facility] ([facility] Mean Corpuscular HGB Conc 32.2 g/dL 32.0-36.5 [facility] ([facility] Platelet Count, Automated 283 10 150-450 [facility] ([facility] Neutrophils % 53.7 % 36.0-66.0 [facility] ([facility] Red Cell Distribution Width 13.6 % 11.5-14.5 [facility] ([facility] Lymph % 33.5 % 24.0-44.0 [facility] ([facility] [place] % 8.7 % 2.0-8.0 [facility] ([facility] Immature Granulocyte % 0.2 % 0-3.0 [facility] ([facility] Baso % 0.7 % 0.0-1.0 [facility] ([facility] Eos % 3.2 % 0.0-3.0 [facility] ([facility] Neutrophils # 4.5 10 1.5-8.5 [facility] ([facility] Nucleated Red Blood Cell % 0.0 % 0-0 [facility] ([facility] Lymph # 2.8 10 1.5-5.0 [facility] ([facility] [place] # 0.7 10 0.0-0.8 [facility] ([facility] Baso # 0.1 10 0.0-0.2 [facility] ([facility] Eos # 0.3 10 0.0-0.5 [facility] ([facility] ID Date Data Source [id number] 09/09/2020 08:26:00 AM EDT [facility] ([facility] Name Value Range Interpretation Code Description Data Jennifer rce(s) Supporting Document(s) Electrocardiogram Laboratory test result [facility] ([facility] ID Date Data Source [id number] 02/08/2020 12:00:00 AM EST [facility] Name Value Range Interpretation Code Description Data Jennifer rce(s) Supporting Document(s) SARS-CoV2 Rapid Antigen [facility] This lab was ordered by [facility] and reported by [facility]. Procedure Social History No Information Vital Signs ID Date Data Source UNK Name Value Range Interpretation Code Description Data Source(s) Systolic blood pressure 117 mm[Hg] 117 mm[Hg] M [facility] ([facility] Diastolic blood pressure 75 mm[Hg] 75 mm[Hg] [facility] ([facility] Heart rate 88 /min 88 /min [facility] ([facility] Body temperature 97.0 [degF] 97.0 [degF] [facility] ([facility] Respiratory rate 16 /min 16 /min [facility] ( [facility] Body height 65.5 [in_i] 65.5 [in_i] [facility] ([facility]uy [facility] 5'5.50" Body weight 189.38 [lb_av] 189.38 [lb_av] [facility] T ([facility] Oxygen saturation in Arterial blood by Pulse oximetry 98 % 98 % [facility] ([facility] [place] body weight 125 [lb_av] 125 [lb_av] [facility] T ([facility] Body mass index (BMI) [Ratio] 31.0 kg/m2 31.0 k g/m2 [facility] ([facility] Systolic blood pressure 128 mm[Hg] 128 mm[Hg] [facility] ([facility]) Body weight 188.12 [lb_av] 188.12 [lb_av] MED[facility] T ([facility]) Body mass index (BMI) [Ratio] 31.3 kg/m2 31.3 k g/m2 [facility] ([facility]) [place] body weight 125 [lb_av] 125 [lb_av] [facility] T ([facility]) Diastolic blood pressure 74 mm[Hg] 74 mm[Hg] [facility] ([facility]) Body temperature 95.6 [degF] 95.6 [degF] [facility] ([facility]) Body height 65 [in_i] 65 [in_i] [facility] ([facility]) 5'5" Body weight 85.334 kg 85.334 kg [facility] ([facility]) Body surface area Derived from formula 1.93 m2 1.93 m2 [facility] ([facility]) [place] body weight 125 [lb_av] 125 [lb_av] [facility] T ([facility] Body mass index (BMI) [Ratio] 30.7 kg/m2 30.7 k g/m2 [facility] ([facility] Body temperature 97.7 [degF] 97.7 [degF] [facility] ([facility] Body weight 187.12 [lb_av] 187.12 [lb_av] [facility] T ([facility] Heart rate 96 /min 96 /min [facility] ([facility] Systolic blood pressure 117 mm[Hg] 117 mm[Hg] M EDENT ([facility] Diastolic blood pressure 76 mm[Hg] 76 mm[Hg] [facility] ([facility] Respiratory rate 14 /min 14 /min [facility] ( [facility] Body height 65.5 [in_i] 65.5 [in_i] [facility] ([facility] 5'5.50" [place] body weight 125 [lb_av] 125 [lb_av] [facility] T ([facility] Body mass index (BMI) [Ratio] 31.0 kg/m2 31.0 k g/m2 [facility] ([facility] Systolic blood pressure 109 mm[Hg] 109 mm[Hg] M ED[facility] ([facility] Diastolic blood pressure 78 mm[Hg] 78 mm[Hg] [facility] ([facility] Heart rate 102 /min 102 /min [facility] ([facility] Body temperature 98.4 [degF] 98.4 [degF] [facility] ([facility] Respiratory rate 16 /min 16 /min [facility] ( [facility] Body height 65.5 [in_i] 65.5 [in_i] [facility] ([facility] 5'5.50" Body weight 189.38 [lb_av] 189.38 [lb_av] [facility] T ([facility] [place] body weight 125 [lb_av] 125 [lb_av] [facility] T ([facility] Diastolic blood pressure 85 mm[Hg] 85 mm[Hg] [facility] ([facility] Systolic blood pressure 114 mm[Hg] 114 mm[Hg] [facility] ([facility] Respiratory rate 18 /min 18 /min [facility] ( [facility] Body height 65.5 [in_i] 65.5 [in_i] [facility] ([facility] 5'5.50" Body weight 187.12 [lb_av] 187.12 [lb_av] [facility] T ([facility] Oxygen saturation in Arterial blood by Pulse oximetry 98 % 98 % [facility] ([facility] Body mass index (BMI) [Ratio] 30.7 kg/m2 30.7 k g/m2 [facility] ([facility] Heart rate 90 /min 90 /min [facility] ([facility] Body temperature 97.5 [degF] 97.5 [degF] [facility] ([facility] Diastolic blood pressure 81 mm[Hg] 81 mm[Hg] [facility] ([facility] Body height 65.5 [in_i] 65.5 [in_i] [facility] ([facility] 5'5.50" Body temperature 96.5 [degF] 96.5 [degF] [facility] ([facility] Respiratory rate 18 /min 18 /min [facility] ( [facility] Body weight 183.38 [lb_av] 183.38 [lb_av] [facility] T ([facility] Systolic blood pressure 123 mm[Hg] 123 mm[Hg] M ED[facility] ([facility] Heart rate 91 /min 91 /min [facility] ([facility] Oxygen saturation in Arterial blood by Pulse oximetry 98 % 98 % [facility] ([facility] [place] body weight 125 [lb_av] 125 [lb_av] [facility] T ([facility] Body mass index (BMI) [Ratio] 30.0 kg/m2 30.0 k g/m2 [facility] ([facility] Systolic blood pressure 121 mm[Hg] 121 mm[Hg] M [facility] ([facility] Diastolic blood pressure 76 mm[Hg] 76 mm[Hg] [facility] ([facility] Heart rate 88 /min 88 /min [facility] ([facility] Body mass index (BMI) [Ratio] 29.3 kg/m2 29.3 k g/m2 [facility] ([facility] Body temperature 96.7 [degF] 96.7 [degF] [facility] ([facility] Body height 65 [in_i] 65 [in_i] [facility] ([facility] 5'5" Body weight 176.25 [lb_av] 176.25 [lb_av] [facility] T ([facility] Oxygen saturation in Arterial blood by Pulse oximetry 96 % 96 % [facility] ([facility] [place] body weight 125 [lb_av] 125 [lb_av] [facility] T ([facility] Respiratory rate 16 /min 16 /min [facility] ( [facility] Systolic blood pressure 118 mm[Hg] 118 mm[Hg] M ED[facility] ([facility] [place] body weight 125 [lb_av] 125 [lb_av] [facility] T ([facility] Body mass index (BMI) [Ratio] 29.2 kg/m2 29.2 k g/m2 [facility] ([facility] Diastolic blood pressure 76 mm[Hg] 76 mm[Hg] [facility] ([facility] Heart rate 103 /min 103 /min [facility] ([facility] Body temperature 98.6 [degF] 98.6 [degF] [facility] ([facility] Respiratory rate 15 /min 15 /min [facility] ( [facility] Body height 65 [in_i] 65 [in_i] [facility] ([facility] 5'5" Body weight 175.38 [lb_av] 175.38 [lb_av] [facility] T ([facility]
--- OUTSIDE RECORDS SUMMARY | 2021-01-06 10:51 | CCD | Continuity of Care Document ---
Author Author Aleida RANKIN DO Organization Unknown Address [address], [address] [place] [address] Phone [phone] Care Team Providers Care Manager Policy Name Role Phone Jeana Cotton N.P. AUTM [phone] AUTM Unavailable Hallie Shaver M.D. AUTM [phone] Problems Description No Active Problems Social History Type Date Description Comments Sex Unknown ETOH Use 1 A Week Tobacco Use Start: 03/22/78 Smokes 1 Pack A Day Recreational Drug Use Denies Drug Use Tobacco Use Start: Unknown Report Cessation Counseling Was Provided Allergies, Adverse Reactions, Alerts Description No Known Drug Allergies Medications Active Medications SIG Qnty Indications Ordering Provide r Date Bupropion HCL SR 150mg Tablets ER 12HR 1tab po qd 60tabs Unknown Lexapro 10mg Tablets 1 by mouth every day Unknown Advair Diskus 250-50mcg/Dose Aeros ol 1 puff twice a day Unknown Albuterol Sulfate HFA 108(90Base) mcg/Act Aerosol inhale two puffs by mouth four times a day as needed Unknown Alprazolam 0.25mg Tablets 1 tab by mouth every day Unknown Flonase Allergy Relief 50mcg/Act Suspension 2 sprays per nostril daily Unknown 0 Immunizations Description No Information Available Vital Signs Date Vital Result Comment 11/12/2020 2:45pm BP Systolic 128 mmHg BP Diastolic 74 mmHg Body Temperature 95.6 F Height 65 inches 5'5" Weight 188.12 lb BMI (Body Mass Index) 31.3 kg/m2 [place] Body Weight 125 lb Weight 85.334 kg BSA (Body Surface Area) 1.93 m2 12/06/2018 8:38am BP Systolic 104 mmHg BP Diastolic 78 mmHg Height 65 inches 5'5" Weight 158.00 lb BMI (Body Mass Index) 26.3 kg/m2 [place] Body Weight 125 lb Weight 71.669 kg BSA (Body Surface Area) 1.79 m2 Results Description No Information Available Procedures Description No Information Available Medical Devices Description No Information Available Encounters Description No Information Available Assessments Description No Information Available Plan of Treatment 12/06/2018 - SELMA Del Rosario* R13.10 Dysphagia, unspecified * * New Orders:* Endoscopy with possible dilation, Ordered: 12/06/18 * Comments:* Will arrange for upper endoscopy and possible dilation. Reviewed risks and benefits of the procedure, as well as other options, with the patient. Prep for this procedure was discussed with patient. Patient verbalized understanding of all of the above and is in agreement to proceed. Patient will seek medical attention for any acute changes. Will monitor. * Follow up:* As scheduled, sooner if needed. Functional Status Description No Information Available Mental Status Description No Information Available Referrals Refer to Reason for Referral Status Appt Date Orlando Rankin D.O. GALL[facility]ONES Scheduled 11/13/[address] [place] [phone]
--- OUTSIDE RECORDS SUMMARY | 2021-01-06 10:51 | CCD | Continuity of Care Document ---
Author Author Aleida RANKIN DO Organization Unknown Address [address], [address] [place] [address] Phone [phone] Care Team Providers Care Epoxy Coatings Installer Name Role Phone Jeana Cotton N.P. AUTM [phone] AUTM Unavailable Hallie Shaver M.D. AUTM [phone] Problems Description No Active Problems Social History [...] lb BMI (Body Mass Index) 31.3 kg/m2 [place] Body Weight 125 lb Weight 85.334 kg BSA (Body Surface Area) 1.93 m2 12/06/2018 8:38am BP Systolic 104 mmHg BP Diastolic 78 mmHg Height 65 inches 5'5" Weight 158.00 lb BMI (Body Mass Index) 26.3 kg/m2 [place] Body Weight 125 lb Weight 71.669 kg BSA (Body Surface Area) 1.79 m2 Results Description No Information Available Procedures Date Code Description Status 11/12/2020 74493 Office/Outpatient New Moderate M DM 45-59 Minutes Completed Medical Devices Description No Information Available Encounters Type Date Location Provider Dx Diagnosis Office Visit 11/12/2020 2:45p [facility] Orlando Rankin DO K80.20 Calculus of gallbladder w/o cholecystiti s w/o obstruction Assessments Date Code Description Provider 11/12/2020 K80.20 Calculus of gallblad mya without cholecystitis without obstruction Orlando Rankin DO Plan of Treatment Future Appointment(s):* 01/20/2021 9:30 am - YULY Woodruff at [facility] * 01/06/2021 7:30 am - Orlando Rankin DO at [facility] 11/12/2020 - Orlando Rankin DO* K80.20 Calculus of gallbladder without cholecystitis without obstruction* Comments:* 60 y/o female w/ symptomatic cholelithiasis. Recommendation at this time is to proceed with robotic assisted lap jean-paul. Risks and benefits of the procedure were discussed in detail with her and informed consent was obtained. The risks include, but are not limited to, bleeding, infection, hernia, need for traditional laparoscopic or open surgery, and possibility of damaging surrounding structures. She understands the risks, and elects to proceed with sx. Functional Status Description No Information Available Mental Status Description No Information Available Referrals Refer to Reason for Referral Status Appt Date Orlando Rankin D.O. GALL[facility]ONES Scheduled 11/13/[address] [place] [address] [phone]
--- OUTSIDE RECORDS SUMMARY | 2021-01-06 10:51 | CCD | Continuity of Care Document ---
Author Author Aleida COTTON [facility] Organization Unknown Address [address] [place] [address] Phone [phone] Care Team Providers Care Energy Infrastructure Engineer Name Role Phone Brenda Gastro - Gastroenterology AUTM Lovely RaiW AUTM [phone] Tamar Shaver AUTM [phone] Problems Active Problems Provider Date Chronic obstructive lung disease Jeana Cotton FNP Onset: 03/06/2020 Mixed hyperlipidemia Christopher Thrasher M.D. Onset: 10/02 Social History Type Date Description Comments Sex Unknown Tobacco Use Start: Unknown Never Used Smokeless Tobacco ETOH Use Denies alcohol use Tobacco Use Start: 03/22/77 Patient is a current smoker, smo kes every day smokes 1 ppd Recreational Drug Use Never Used Drugs Smoking Status Reviewed: 10/15/20 Patient is a current smoker, smokes every day smokes 1 ppd Exercise Type/Frequency Exercises regularly Seat Belt/Car Seat Always uses seat belt Bike Helmet Always Guns in Home Yes, Locked Up Smoke Alarms Yes Smoke Alarms Carbon Monoxide Detector: Yes Allergies, Adverse Reactions, Alerts Description No Known Drug Allergies Medications Active Medications SIG Qnty Indications Ordering Provide r Date Fluticasone Propionate 50mcg/Act Suspension two sprays each side of nose daily 48gm J31.0 Jeana Grider ch, FNP 09/09/2020 Escitalopram Oxalate 20mg Tablets take one tablet by mouth every day 90tabs Jeana Cotton FNP 0 11/23/2019 Albuterol Sulfate HFA 108(90Base) mcg/Act Aerosol inhale two puffs by mouth every 4 hours as needed 25.5gm J20.9 Jeana Cotton, PROFESSIONAL SERVICES CONSULTANT 04/11/2019 Advair Diskus 250-50mcg/Dose Aeros ol 1 puff twice a day 180units J44.1 Jeana Cototn, PROFESSIONAL SERVICES CONSULTANT 02/07/2019 Alprazolam 0.25mg Tablets 1/2 tablet by mouth as needed for anxiety up to twice daily 10tabs Pl Jeana brody, PROFESSIONAL SERVICES CONSULTANT 10/05/2018 Bupropion Hydrochloride ER (XL) 150mg Tablets ER 24HR take one tablet by mouth once a day 90tabs Jeana Callahan, PROFESSIONAL SERVICES CONSULTANT 10/03/2018 Sudafed 30mg Tablets u se as directed prn Unknown History Medications Azithromycin 250mg Tablets take 2 tabs by mouth x 1 day, then one tab by mouth daily for remaining days 6tabs J32.9 Latha Lazar PA 06/17/2020 - 09/09/2020 Immunizations CPT Code Status Date Vaccine Lot # [id number] Given 05/09/2020 Pfizer-Sars-(Cov id-19) vaccine, mRNA, LNP-S, PF, 30 mcg/ 0.3 mL 42807 Given 04/11/2020 Pfizer-Sars-(Cov id-19) vaccine, mRNA, LNP-S, PF, 30 mcg/ 0.3 mL [id number] Given 12/26/2019 Influenza Virus Vaccine, Quadrivalent,age 3 and up,multidose vial [id number] Given 11/23/2019 Pneumococcal Vaccine [id number] 39441 Given 11/11/2018 Boostrix (Tdap) Tetnus, Diphtheria Toxoids & Acellular Pertussis [id number] Given 01/10/2015 Influenza Vaccination/preser vative free [id number] 81978 Given 01/05/2014 Influenza Vaccination [id number] Vital Signs Date Vital Result Comment 10/15/2020 1:46pm BP Systolic 117 mmHg BP Diastolic 76 mmHg Heart Rate 96 /min Body Temperature 97.7 F Respiratory Rate 14 /min Height 65.5 inches 5'5.50" Weight 187.12 lb Peak Expiratory Flow Rate 351 Estimated Peak Flow Rate [place] Body Weight 125 lb BMI (Body Mass Index) 30.7 kg/m2 09/09/2020 7:57am BP Systolic 109 mmHg BP Diastolic 78 mmHg Heart Rate 102 /min Body Temperature 98.4 F Respiratory Rate 16 /min Height 65.5 inches 5'5.50" Weight 189.38 lb Peak Expiratory Flow Rate 351 Estimated Peak Flow Rate [place] Body Weight 125 lb BMI (Body Mass Index) 31.0 kg/m2 Results Test Acquired Date Facility Test Result H/L Range Note CBC With Differential 09/09/2020 [facility] [phone] White Blood Count 8.4 10 Normal 4.0-10.0 Red Blood Count 4.59 10 Normal 4.00-5.40 Hemoglobin 14.7 g/dL Normal 12.0-15.5 Hematocrit 45.7 % Normal 36.0-47.0 Mean Corpuscular Volume 99.6 fl High 80.0-96.0 Mean Corpuscular Hemoglobin 32.0 pg Normal 27.0-33.0 Mean Corpuscular HGB Conc 32.2 g/dL Normal 32.0-36.5 Red Cell Distribution Width 13.6 % Normal 11.5-14.5 Platelet Count, Automated 283 10 Normal 150-450 Neutrophils % 53.7 % Normal 36.0-66.0 Lymph % 33.5 % Normal 24.0-44.0 [place] % 8.7 % High 2.0-8.0 Eos % 3.2 % High 0.0-3.0 Baso % 0.7 % Normal 0.0-1.0 Immature Granulocyte % 0.2 % Normal 0-3.0 Nucleated Red Blood Cell % 0.0 % Normal 0-0 Neutrophils # 4.5 10 Normal 1.5-8.5 Lymph # 2.8 10 Normal 1.5-5.0 [place] # 0.7 10 Normal 0.0-0.8 Eos # 0.3 10 Normal 0.0-0.5 Baso # 0.1 10 Normal 0.0-0.2 Comprehensive Metabolic Profil 09/09/2020 [facility] [phone] Glucose, Fasting 121 mg/dL High 70-100 Blood Urea Nitrogen 13 mg/dL Normal 7-18 Creatinine For GFR 0.59 mg/dL Normal 0.55-1.30 Glomerular Filtration Rate > 60.0 Normal >51 1 Sodium Level 142 mEq/L Normal 136-145 Potassium Serum 4.0 mEq/L Normal 3.5-5.1 Chloride Level 107 mEq/L Normal 98-107 Carbon Dioxide Level 31 mEq/L Normal 21-32 Anion Gap 4 mEq/L Low 8-16 Calcium Level 8.8 mg/dL Normal 8.5-10.1 Ast/Sgot 17 U/L Normal 7-37 Alt/SGPT 18 U/L Normal 12-78 Alkaline Phosphatase 100 U/L Normal 45-117 Bilirubin,Total 0.3 mg/dL Normal 0.2-1.0 Total Protein 6.8 GM/DL Normal 6.4-8.2 Albumin 3.5 GM/DL Normal 3.2-5.2 Albumin/Globulin Ratio 1.1 Low 1.2-2.2 Lipid Panel 09/09/2020 [facility] nter [phone] Triglycerides Level 127 mg/dL Normal <150 Cholesterol Level 200 mg/dL Normal <200 HDL Cholesterol 66 mg/dL Normal >40 LDL Cholesterol 109 mg/dL High <100 Non-HDL-C 134 mg/dL Normal Cholesterol Risk Ratio 3.030 Normal <5 Order 09/09/2020 [facility] [address] [place] [address] [phone] Electrocardiogram <pending> 1 Units are mL/min/1.73 m2 Chronic Kidney Disease Staging per NKF: Stage I & II GFR >=60 Normal to Mildly Decreased Stage III GFR 30-59 Moderately Decreased Stage IV GFR 15-29 Severely Decreased Stage V GFR <15 Very Little GFR Left ESRD GFR <15 on [facility] Procedures Date Code Description Status 09/09/2020 74994 Office/Outpatient Established Mo d MDM 30-39 Min Completed 09/09/2020 52140 EKG Interpretation & Report Comp leted 06/17/2020 72910 Office/Outpatient Established Lo w MDM 20-29 Min Completed 05/22/2020 29952 Office/Outpatient Established Lo w MDM 20-29 Min Completed 10/06/2018 [id number] Mammogram Completed 11/08/2014 [id number] Mammogram Completed 09/13/2013 [id number] Mammogram Completed 09/13/2013 [id number] Bone Mineral Density Test Comple [employer] Description No Information Available Encounters Type Date Location Provider Dx Diagnosis Office Visit 09/09/2020 8:00a Main Office Pleskach, Jeana, PROFESSIONAL SERVICES CONSULTANT J31.0 Chronic rhinitis R05 Cough E78.2 Mixed hyperlipidemia J44.9 Chronic obstructive pulmonar y disease, unspecified F33.1 Major depressive disorder, r ecurrent, moderate I49.9 Cardiac arrhythmia, unspecif ied Office Visit 06/17/2020 3:30p Main Office Latha Lazar PA J32.9 Chronic sinusitis, unspecified Office Visit 05/22/2020 4:00p Main Office Pleskach, Jeana, PROFESSIONAL SERVICES CONSULTANT R59.0 Localized enlarged lymph nodes F41.9 Anxiety disorder, unspecifie d Assessments Date Code Description Provider 10/15/2020 R10.11 Right upper quadrant pain Pleska ch, Jeana, PROFESSIONAL SERVICES CONSULTANT 09/09/2020 J31.0 Chronic rhinitis Pleskach, Jeana , PROFESSIONAL SERVICES CONSULTANT 09/09/2020 R05 Cough Pleskach, Jeana, PROFESSIONAL SERVICES CONSULTANT 09/09/2020 E78.2 Mixed hyperlipidemia Pleskach, M cody, PROFESSIONAL SERVICES CONSULTANT 09/09/2020 J44.9 Chronic obstructive pulmonary di sease, unspecified Pleskach, Jeana, PROFESSIONAL SERVICES CONSULTANT 09/09/2020 F33.1 Major depressive disorder, recur rent, moderate Pleskach, Jeana, PROFESSIONAL SERVICES CONSULTANT 09/09/2020 I49.9 Cardiac arrhythmia, unspecified Pleskach, Jeana, PROFESSIONAL SERVICES CONSULTANT 06/17/2020 J32.9 Sinusitis Sheryl Lazar cia, PA 05/22/2020 R59.0 Localized enlarged lymph nodes P Jeana li, PROFESSIONAL SERVICES CONSULTANT 05/22/2020 F41.9 Anxiety disorder, unspecified Pl Jeana brody, PROFESSIONAL SERVICES CONSULTANT Plan of Treatment Future Appointment(s):* 03/11/2021 8:00 am - Jeana Cotton PROFESSIONAL SERVICES CONSULTANT at Main Office 10/15/2020 - PleJeana hooks, PROFESSIONAL SERVICES CONSULTANT* R10.11 Right upper quadrant pain* New Labs:* Comprehensive Metabolic Profil, Scheduled: 10/15/20 * CBC With Differential, Scheduled: 10/15/20 * Lipase, Scheduled: 10/15/20 * Amylase, Scheduled: 10/15/20 * Comments:* RUQ ultrasound Functional Status Functional Condition Comment Date Status Glasses Active Independent with all ADL's Activ e Independent with all IADL's Acti ve Complete dentures Complete upper, partial lower Active Mental Status Mental Condition Comment Date Status None Active Referrals Description No Information Available
--- OUTSIDE RECORDS SUMMARY | 2021-01-06 10:51 | CCD | Continuity of Care Document ---
Author Author Aleida [facility] Organization Unknown Address [address] [place] [address] Phone [phone] Care Team Providers Care Cash Accounting Clerk Name Role Phone Brenda Gastro - Gastroenterology AUTM Lovely RaiW AUTM [phone] Tamar Shaver AUTM [phone] Problems Active Problems Provider Date Chronic obstructive [...] hours as needed 25.5gm J20.9 Jeana Cotton, OPERATING ROOM TECH 04/11/2019 Advair Diskus 250-50mcg/Dose Aeros ol 1 puff twice a day 180units J44.1 Jeana Cotton, OPERATING ROOM TECH 02/07/2019 Alprazolam 0.25mg Tablets 1/2 tablet by mouth as needed for anxiety up to twice daily 10tabs Pl Jeana brody, OPERATING ROOM TECH 10/05/2018 Bupropion Hydrochloride ER (XL) 150mg Tablets ER 24HR take one tablet by mouth once a day 90tabs Jeana Callahan, OPERATING ROOM TECH 10/03/2018 Sudafed 30mg Tablets u se as directed prn Unknown History Medications Azithromycin 250mg Tablets take 2 tabs by mouth x 1 day, then one tab by mouth daily for remaining days 6tabs J32.9 Latha Lazar PA 06/17/2020 - 09/09/2020 Immunizations CPT Code Status Date Vaccine Lot # [id number] Given 05/09/2020 Pfizer-Sars-(Cov id-19) vaccine, mRNA, LNP-S, PF, 30 mcg/ 0.3 mL [id number] Given 04/11/2020 Pfizer-Sars-(Cov id-19) vaccine, mRNA, LNP-S, PF, 30 mcg/ 0.3 mL 80556 Given 12/26/2019 Influenza Virus Vaccine, Quadrivalent,age 3 and up,multidose vial [id number] 40026 Given 11/23/2019 Pneumococcal Vaccine [id number] 43814 Given 11/11/2018 Boostrix (Tdap) Tetnus, Diphtheria Toxoids & Acellular Pertussis [id number] 29605 Given 01/10/2015 Influenza Vaccination/preser vative free [id number] 09421 Given 01/05/2014 Influenza Vaccination [id number] Vital Signs Date Vital Result Comment 10/15/2020 1:46pm BP Systolic 117 mmHg BP Diastolic 76 mmHg Heart Rate 96 /min Body Temperature 97.7 F Respiratory Rate 14 /min Height 65.5 inches 5'5.50" Weight 187.12 lb Peak Expiratory Flow Rate 351 Estimated Peak Flow Rate [place] Body Weight 125 lb BMI (Body Mass Index) 30.7 kg/m2 09/09/2020 7:57am BP Systolic 109 mmHg BP Diastolic 78 mmHg Heart Rate 102 /min Body Temperature 98.4 F Respiratory Rate 16 /min Height 65.5 inches 5'5.50" Weight 189.38 lb Peak Expiratory Flow Rate 351 Estimated Peak Flow Rate [place] Body Weight 125 lb BMI (Body Mass Index) 31.0 kg/m2 Results Test Acquired Date Facility Test Result H/L Range Note Comprehensive Metabolic Profil 10/15/2020 [facility] [phone] Glucose, Fasting 126 mg/dL High 70-100 Blood Urea Nitrogen 14 mg/dL Normal 7-18 Creatinine For GFR 0.80 mg/dL Normal 0.55-1.30 Glomerular Filtration Rate > 60.0 Normal >51 1 Sodium Level 140 mEq/L Normal 136-145 Potassium Serum 3.8 mEq/L Normal 3.5-5.1 Chloride Level 105 mEq/L Normal 98-107 Carbon Dioxide Level 31 mEq/L Normal 21-32 Anion Gap 4 mEq/L Low 8-16 Calcium Level 8.7 mg/dL Normal 8.5-10.1 Ast/Sgot 20 U/L Normal 7-37 Alt/SGPT 68 U/L Normal 12-78 Alkaline Phosphatase 101 U/L Normal 45-117 Bilirubin,Total 0.3 mg/dL Normal 0.2-1.0 Total Protein 6.9 GM/DL Normal 6.4-8.2 Albumin 3.7 GM/DL Normal 3.2-5.2 Albumin/Globulin Ratio 1.2 Normal 1.2-2.2 CBC With Differential 10/15/2020 [facility] [phone] White Blood Count 8.8 10 Normal 4.0-10.0 Red Blood Count 4.61 10 Normal 4.00-5.40 Hemoglobin 14.7 g/dL Normal 12.0-15.5 Hematocrit 44.8 % Normal 36.0-47.0 Mean Corpuscular Volume 97.2 fl High 80.0-96.0 Mean Corpuscular Hemoglobin 31.9 pg Normal 27.0-33.0 Mean Corpuscular HGB Conc 32.8 g/dL Normal 32.0-36.5 Red Cell Distribution Width 13.2 % Normal 11.5-14.5 Platelet Count, Automated 295 10 Normal 150-450 Neutrophils % 48.6 % Normal 36.0-66.0 Lymph % 39.4 % Normal 24.0-44.0 [place] % 8.7 % High 2.0-8.0 Eos % 2.3 % Normal 0.0-3.0 Baso % 0.8 % Normal 0.0-1.0 Immature Granulocyte % 0.2 % Normal 0-3.0 Nucleated Red Blood Cell % 0.0 % Normal 0-0 Neutrophils # 4.3 10 Normal 1.5-8.5 Lymph # 3.5 10 Normal 1.5-5.0 [place] # 0.8 10 Normal 0.0-0.8 Eos # 0.2 10 Normal 0.0-0.5 Baso # 0.1 10 Normal 0.0-0.2 Laboratory test finding 10/15/2020 [facility] [phone] Lipase 180 U/L Normal 73-393 Amylase 66 U/L Normal 25-115 CBC With Differential 09/09/2020 [facility] [phone] White Blood Count 8.4 10 Normal 4.0-10.0 [...] 36.0-66.0 Lymph % 33.5 % Normal 24.0-44.0 [place] % 8.7 % High 2.0-8.0 Eos % 3.2 % High 0.0-3.0 Baso % 0.7 % Normal 0.0-1.0 Immature Granulocyte % 0.2 % Normal 0-3.0 Nucleated Red Blood Cell % 0.0 % Normal 0-0 Neutrophils # 4.5 10 Normal 1.5-8.5 Lymph # 2.8 10 Normal 1.5-5.0 [place] # 0.7 10 Normal 0.0-0.8 Eos # 0.3 10 Normal 0.0-0.5 Baso # 0.1 10 Normal 0.0-0.2 Comprehensive Metabolic Profil 09/09/2020 [facility] [phone] Glucose, Fasting 121 mg/dL High 70-100 Blood Urea Nitrogen 13 mg/dL Normal 7-18 Creatinine For GFR 0.59 mg/dL Normal 0.55-1.30 Glomerular Filtration Rate > 60.0 Normal >51 2 Sodium Level 142 mEq/L Normal 136-145 Potassium [...] 1.1 Low 1.2-2.2 Lipid Panel 09/09/2020 [facility] [place] nter [phone] Triglycerides Level 127 mg/dL Normal <150 Cholesterol Level 200 mg/dL Normal <200 HDL Cholesterol 66 mg/dL Normal >40 LDL Cholesterol 109 mg/dL High <100 Non-HDL-C 134 mg/dL Normal Cholesterol Risk Ratio 3.030 Normal <5 Order 09/09/2020 [facility] [address] [place] [address] [phone] Electrocardiogram <pending> 1 Units are mL/min/1.73 m2 Chronic Kidney Disease Staging per NKF: Stage I & II GFR >=60 Normal to Mildly Decreased Stage III GFR 30-59 Moderately Decreased Stage IV GFR 15-29 Severely Decreased Stage V GFR <15 Very Little GFR Left ESRD GFR <15 on [employer] 2 Units are mL/min/1.73 m2 Chronic Kidney Disease Staging per NKF: Stage I & II GFR >=60 Normal to Mildly Decreased Stage III GFR 30-59 Moderately Decreased Stage IV GFR 15-29 Severely Decreased Stage V GFR <15 Very Little GFR Left ESRD GFR <15 on [employer] Procedures Date Code Description Status 10/15/2020 58706 Office/Outpatient Established Mo d MDM 30-39 Min Completed 09/09/2020 97178 Office/Outpatient Established Mo d MDM 30-39 Min Completed 09/09/2020 95404 EKG Interpretation & Report Comp leted 06/17/2020 72783 Office/Outpatient Established Lo w MDM 20-29 Min Completed 05/22/2020 63659 Office/Outpatient Established Lo w MDM 20-29 Min Completed 10/06/2018 [id number] Mammogram Completed 11/08/2014 [id number] Mammogram Completed 09/13/2013 [id number] Mammogram Completed 09/13/2013 [id number] Bone Mineral Density Test Comple [employer] Description No Information Available Encounters Type Date Location Provider Dx Diagnosis Office Visit 10/15/2020 1:45p Main Office Pleskach, Jeana, OPERATING ROOM TECH R10.1 1 Right upper quadrant pain Office Visit 09/09/2020 8:00a Main Office Pleskach, Jeana, OPERATING ROOM TECH J31.0 Chronic rhinitis R05 Cough E78.2 Mixed hyperlipidemia J44.9 Chronic obstructive pulmonar y disease, unspecified F33.1 Major depressive disorder, r ecurrent, moderate I49.9 Cardiac arrhythmia, unspecif ied Office Visit 06/17/2020 3:30p Main Office Latha Lazar PA J32.9 Chronic sinusitis, unspecified Office Visit 05/22/2020 4:00p Main Office Pleskach, Jeana, OPERATING ROOM TECH R59.0 Localized enlarged lymph nodes F41.9 Anxiety disorder, unspecifie d Assessments Date Code Description Provider 10/15/2020 R10.11 Right upper quadrant pain Pleska ch, Jeana, OPERATING ROOM TECH 09/09/2020 J31.0 Chronic rhinitis Pleskach, Jeana , OPERATING ROOM TECH 09/09/2020 R05 Cough Pleskach, Jeana, OPERATING ROOM TECH 09/09/2020 E78.2 Mixed hyperlipidemia Pleskach, M cody, OPERATING ROOM TECH 09/09/2020 J44.9 Chronic obstructive pulmonary di sease, unspecified Pleskach, Jeana, OPERATING ROOM TECH 09/09/2020 F33.1 Major depressive disorder, recur rent, moderate Jeana Cotton FNP 09/09/2020 I49.9 Cardiac arrhythmia, unspecified Jeana Cotton FNP 06/17/2020 J32.9 Sinusitis Sheryl Lazar cia, PA 05/22/2020 R59.0 Localized enlarged lymph nodes P Jeana li FNP 05/22/2020 F41.9 Anxiety disorder, unspecified Pl Jeana brody FNP Plan of Treatment Future Appointment(s):* 03/11/2021 8:00 am - Jeana Cotton FNP at Main Office 10/15/2020 - Jeana Cotton FNP* R10.11 Right upper quadrant pain* Comments:* get labs and RUQ ultrasound Functional Status Functional Condition Comment Date Status Glasses Active Independent with all ADL's Activ e Independent with all IADL's Acti ve Complete dentures Complete upper, partial lower Active Mental Status Mental Condition Comment Date Status None Active Referrals Description No Information Available
--- OUTSIDE RECORDS SUMMARY | 2021-01-06 10:51 | CCD | Continuity of Care Document ---
Author Author Aleida [facility] Organization Unknown Address [address] [place] [address] Phone [phone] Care Team Providers Care Service Supervisor Name Role Phone Brenda Gastro - Gastroenterology AUTM Lovely RaiW AUTM [phone] Tamar Shaver AUTM [phone] Problems Active Problems Provider Date Chronic obstructive [...] hours as needed 25.5gm J20.9 Jeana Cotton, DEPUTY HARBORMASTER 04/11/2019 Advair Diskus 250-50mcg/Dose Aeros ol 1 puff twice a day 180units J44.1 Jeana Cotton, DEPUTY HARBORMASTER 02/07/2019 Alprazolam 0.25mg Tablets 1/2 tablet by mouth as needed for anxiety up to twice daily 10tabs Pl Jeana brody, DEPUTY HARBORMASTER 10/05/2018 Bupropion Hydrochloride ER (XL) 150mg Tablets ER 24HR take one tablet by mouth once a day 90tabs Jeana Callahan, DEPUTY HARBORMASTER 10/03/2018 Sudafed 30mg Tablets u se as directed prn Unknown History Medications Azithromycin 250mg Tablets take 2 tabs by mouth x 1 day, then one tab by mouth daily for remaining days 6tabs J32.9 Latha Lazar PA 06/17/2020 - 09/09/2020 Immunizations CPT Code Status Date Vaccine Lot # [id number] Given 05/09/2020 Pfizer-Sars-(Cov id-19) vaccine, mRNA, LNP-S, PF, 30 mcg/ 0.3 mL [id number] Given 04/11/2020 Pfizer-Sars-(Cov id-19) vaccine, mRNA, LNP-S, PF, 30 mcg/ 0.3 mL 40073 Given 12/26/2019 Influenza Virus Vaccine, Quadrivalent,age 3 and up,multidose vial [id number] 93909 Given 11/23/2019 Pneumococcal Vaccine [id number] 26864 Given 11/11/2018 Boostrix (Tdap) Tetnus, Diphtheria Toxoids & Acellular Pertussis [id number] 20932 Given 01/10/2015 Influenza Vaccination/preser vative free [id number] 01431 Given 01/05/2014 Influenza Vaccination [id number] Vital Signs Date Vital Result Comment 10/15/2020 1:46pm BP Systolic 117 mmHg BP Diastolic 76 mmHg Heart Rate 96 /min Body Temperature 97.7 F Respiratory Rate 14 /min Height 65.5 inches 5'5.50" Weight 187.12 lb Peak Expiratory Flow Rate 351 Estimated Peak Flow Rate [place] Body Weight 125 lb BMI (Body Mass Index) 30.7 kg/m2 09/09/2020 7:57am BP Systolic 109 mmHg BP Diastolic 78 mmHg Heart Rate 102 /min Body Temperature 98.4 F Respiratory Rate 16 /min Height 65.5 inches 5'5.50" Weight 189.38 lb Peak Expiratory Flow Rate 351 Estimated Peak Flow Rate [place] Body Weight 125 lb BMI (Body Mass Index) 31.0 kg/m2 Results Test Acquired Date Facility Test Result H/L Range Note Comprehensive Metabolic Profil 10/15/2020 [facility] [phone] Glucose, Fasting 126 mg/dL High 70-100 Blood [...] 1.2 Normal 1.2-2.2 CBC With Differential 10/15/2020 [facility] [phone] White Blood Count 8.8 10 Normal 4.0-10.0 [...] 36.0-66.0 Lymph % 39.4 % Normal 24.0-44.0 [place] % 8.7 % High 2.0-8.0 Eos % 2.3 % Normal 0.0-3.0 Baso % 0.8 % Normal 0.0-1.0 Immature Granulocyte % 0.2 % Normal 0-3.0 Nucleated Red Blood Cell % 0.0 % Normal 0-0 Neutrophils # 4.3 10 Normal 1.5-8.5 Lymph # 3.5 10 Normal 1.5-5.0 [facility] # 0.8 10 Normal 0.0-0.8 Eos # 0.2 10 Normal 0.0-0.5 Baso # 0.1 10 Normal 0.0-0.2 Laboratory test finding 10/15/2020 [facility] [phone] Lipase 180 U/L Normal 73-393 Amylase 66 U/L Normal 25-115 CBC With Differential 09/09/2020 [facility] [phone] White Blood Count 8.4 10 Normal 4.0-10.0 [...] 36.0-66.0 Lymph % 33.5 % Normal 24.0-44.0 [facility] % 8.7 % High 2.0-8.0 Eos % 3.2 % High 0.0-3.0 Baso % 0.7 % Normal 0.0-1.0 Immature Granulocyte % 0.2 % Normal 0-3.0 Nucleated Red Blood Cell % 0.0 % Normal 0-0 Neutrophils # 4.5 10 Normal 1.5-8.5 Lymph # 2.8 10 Normal 1.5-5.0 [facility] # 0.7 10 Normal 0.0-0.8 Eos # 0.3 10 Normal 0.0-0.5 Baso # 0.1 10 Normal 0.0-0.2 Comprehensive Metabolic Profil 09/09/2020 [facility] [phone] Glucose, Fasting 121 mg/dL High 70-100 Blood [...] Ratio 1.1 Low 1.2-2.2 Lipid Panel 09/09/2020 [facility] nter [phone] Triglycerides Level 127 mg/dL Normal <150 Cholesterol Level 200 mg/dL Normal <200 HDL Cholesterol 66 mg/dL Normal >40 LDL Cholesterol 109 mg/dL High <100 Non-HDL-C 134 mg/dL Normal Cholesterol Risk Ratio 3.030 Normal <5 Order 09/09/2020 [facility] [address] [place] [address] [phone] Electrocardiogram <pending> 1 Units are mL/min/1.73 m2 Chronic Kidney Disease Staging per NKF: Stage I & II GFR >=60 Normal to Mildly Decreased Stage III GFR 30-59 Moderately Decreased Stage IV GFR 15-29 Severely Decreased Stage V GFR <15 Very Little GFR Left ESRD GFR <15 on [employer] 2 Units are mL/min/1.73 m2 Chronic Kidney Disease Staging per NKF: Stage I & II GFR >=60 Normal to Mildly Decreased Stage III GFR 30-59 Moderately Decreased Stage IV GFR 15-29 Severely Decreased Stage V GFR <15 Very Little GFR Left ESRD GFR <15 on [employer] Procedures Date Code Description Status 10/15/2020 64330 Office/Outpatient Established Mo d MDM 30-39 Min Completed 09/09/2020 29041 Office/Outpatient Established Mo d MDM 30-39 Min Completed 09/09/2020 16812 EKG Interpretation & Report Comp leted 06/17/2020 24422 Office/Outpatient Established Lo w MDM 20-29 Min Completed 05/22/2020 82234 Office/Outpatient Established Lo w MDM 20-29 Min Completed 10/06/2018 [id number] Mammogram Completed 11/08/2014 [id number] Mammogram Completed 09/13/2013 [id number] Mammogram Completed 09/13/2013 [id number] Bone Mineral Density Test Comple [employer] Description No Information Available Encounters Type Date Location Provider Dx Diagnosis Office Visit 10/15/2020 1:45p Main Office Pleskach, Jeana, DEPUTY HARBORMASTER R10.1 1 Right upper quadrant pain Office Visit 09/09/2020 8:00a Main Office Pleskach, Jeana, DEPUTY HARBORMASTER J31.0 Chronic rhinitis R05 Cough E78.2 Mixed hyperlipidemia J44.9 Chronic obstructive pulmonar y disease, unspecified F33.1 Major depressive disorder, r ecurrent, moderate I49.9 Cardiac arrhythmia, unspecif ied Office Visit 06/17/2020 3:30p Main Office Latha Lazar PA J32.9 Chronic sinusitis, unspecified Office Visit 05/22/2020 4:00p Main Office Pleskach, Jeana, DEPUT[employer]MASTER R59.0 Localized enlarged lymph nodes F41.9 Anxiety disorder, unspecifie d Assessments Date Code Description Provider 10/15/2020 R10.11 Right upper quadrant pain Pleska ch, Jeana, DEPUT[employer] HARBORMASTER 09/09/2020 J31.0 Chronic rhinitis Pleskach, Jeana , DEPUT[employer] HARBORMASTER 09/09/2020 R05 Cough Pleskach, Jeana, DEPUT[employer] HARB[employer]MASTER 09/09/2020 E78.2 Mixed hyperlipidemia Pleskach, M cody, DEPUTY HARBORMASTER 09/09/2020 J44.9 Chronic obstructive pulmonary di sease, unspecified Pleskach, Jeana, DEPUT[employer] HARBORMASTER 09/09/2020 F33.1 Major depressive disorder, recur rent, [...]
--- OUTSIDE RECORDS SUMMARY | 2021-01-06 10:51 | CCD | Continuity of Care Document ---
Author Author Aleida RANKIN DO Organization Unknown Address [address], [address] [place] [address] Phone [phone] Care Team Providers Care Particle Board Supervisor Name Role Phone Jeana Cotton N.P. AUTM [phone] AUTM Unavailable Hallie Shaver M.D. AUTM [phone] Problems Description No Active Problems Social History [...] lb BMI (Body Mass Index) 31.3 kg/m2 [place] Body Weight 125 lb Weight 85.334 kg BSA (Body Surface Area) 1.93 m2 12/06/2018 8:38am BP Systolic 104 mmHg BP Diastolic 78 mmHg Height 65 inches 5'5" Weight 158.00 lb BMI (Body Mass Index) 26.3 kg/m2 [place] Body Weight 125 lb Weight 71.669 kg [...] Orlando Rankin D.O. [employer] Scheduled 11/13/[address] [place] [id number] [phone]
--- OUTSIDE RECORDS SUMMARY | 2021-01-06 10:51 | CCD | Continuity of Care Document ---
Author Author Aleida RANKIN DO Organization Unknown Address [address] [facility] [facility], [address] [place] [address] Phone [phone] Care Team Providers Care Wildlife Ecology Professor Name Role Phone Jeana Cotton N.P. AUTM [phone] AUTM Unavailable Hallie Shaver M.D. AUTM [phone] Problems Description No Active Problems Social History [...] lb BMI (Body Mass Index) 31.3 kg/m2 [place] Body Weight 125 lb Weight 85.334 kg BSA (Body Surface Area) 1.93 m2 12/06/2018 8:38am BP Systolic 104 mmHg BP Diastolic 78 mmHg Height 65 inches 5'5" Weight 158.00 lb BMI (Body Mass Index) 26.3 kg/m2 [place] Body Weight 125 lb Weight 71.669 kg [...] Orlando Rankin D.O. [employer] Scheduled 11/13/[address] [place] [id number] [phone]
--- OUTSIDE RECORDS SUMMARY | 2021-01-06 10:51 | CCD | Continuity of Care Document ---
Author Author Aleida COTTON [facility] Organization Unknown Address [address] [place] [address] Phone [phone] Care Team Providers Care Chute Man Name Role Phone Brenda Gastro - Gastroenterology AUTM Lovely RaiW AUTM [phone] Tamar Shaver AUTM [phone] Orlando Rankin DO AUTM [phone] Problems Active Problems Provider Date Chronic obstructive [...] Use Never Used Drugs Smoking Status Reviewed: 12/24/20 Patient is a current smoker, smokes every [...] hours as needed 25.5gm J20.9 Jeana Cotton, SAMPLES AND REPAIRS PREPARER 04/11/2019 Advair Diskus 250-50mcg/Dose Aeros ol 1 puff twice a day 180units J44.1 Jeana Cotton, SAMPLES AND REPAIRS PREPARER 02/07/2019 Alprazolam 0.25mg Tablets 1/2 tablet by mouth as needed for anxiety up to twice daily 10tabs Pl Jeana brody FNP 10/05/2018 Bupropion Hydrochloride ER (XL) 150mg Tablets ER 24HR take one tablet by mouth once a day 90tabs Jeana Callahan, FANNIE 10/03/2018 Sudafed 30mg Tablets u se as directed prn Unknown Immunizations CPT Code Status Date Vaccine Lot # [id number] Given 05/09/2020 Pfizer-Sars-(Cov id-19) vaccine, mRNA, LNP-S, PF, 30 mcg/ 0.3 mL [id number] Given 04/11/2020 Pfizer-Sars-(Cov id-19) vaccine, mRNA, LNP-S, PF, 30 mcg/ 0.3 mL 23380 Given 12/26/2019 Influenza Virus Vaccine, Rip drivalent,multidose vial [id number] Given 11/23/2019 Pneumococcal Vaccine [id number] Given 11/11/2018 Boostrix (Tdap) Tetnus, Diphtheria Toxoids & Acellular Pertussis [id number] Given 01/10/2015 Influenza Vaccination/preser vative free [id number] 89173 Given 01/05/2014 Influenza Vaccination [id number] Vital Signs Date Vital Result Comment 12/24/2020 8:53am BP Systolic 117 mmHg BP Diastolic 75 mmHg Heart Rate 88 /min Body Temperature 97.0 F Respiratory Rate 16 /min Height 65.5 inches 5'5.50" Weight 189.38 lb O2 % BldC Oximetry 98 % Peak Expiratory Flow Rate 350 Estimated Peak Flow Rate [place] Body Weight 125 lb BMI (Body Mass Index) 31.0 kg/m2 10/15/2020 1:46pm BP Systolic 117 mmHg BP Diastolic 76 mmHg Heart Rate 96 /min Body Temperature 97.7 F Respiratory Rate 14 /min Height 65.5 inches 5'5.50" Weight 187.12 lb Peak Expiratory Flow Rate 351 Estimated Peak Flow Rate [place] Body Weight 125 lb BMI (Body Mass Index) 30.7 kg/m2 Results Test Acquired Date Facility Test Result H/L Range Note Comprehensive Metabolic Profil 10/15/2020 [facility] [phone] Glucose, Fasting 126 mg/dL High 70-100 Blood [...] 1.2 Normal 1.2-2.2 CBC With Differential 10/15/2020 [facility] [phone] White Blood Count 8.8 10 Normal 4.0-10.0 [...] 36.0-66.0 Lymph % 39.4 % Normal 24.0-44.0 Whiteside % 8.7 % High 2.0-8.0 Eos % 2.3 % Normal 0.0-3.0 Baso % 0.8 % Normal 0.0-1.0 Immature Granulocyte % 0.2 % Normal 0-3.0 Nucleated Red Blood Cell % 0.0 % Normal 0-0 Neutrophils # 4.3 10 Normal 1.5-8.5 Lymph # 3.5 10 Normal 1.5-5.0 Whiteside # 0.8 10 Normal 0.0-0.8 Eos # 0.2 10 Normal 0.0-0.5 Baso # 0.1 10 Normal 0.0-0.2 Laboratory test finding 10/15/2020 [facility] [phone] Lipase 180 U/L Normal 73-393 Amylase 66 U/L Normal 25-115 CBC With Differential 09/09/2020 [facility] [phone] White Blood Count 8.4 10 Normal 4.0-10.0 [...] 36.0-66.0 Lymph % 33.5 % Normal 24.0-44.0 Whiteside % 8.7 % High 2.0-8.0 Eos % 3.2 % High 0.0-3.0 Baso % 0.7 % Normal 0.0-1.0 Immature Granulocyte % 0.2 % Normal 0-3.0 Nucleated Red Blood Cell % 0.0 % Normal 0-0 Neutrophils # 4.5 10 Normal 1.5-8.5 Lymph # 2.8 10 Normal 1.5-5.0 Whiteside # 0.7 10 Normal 0.0-0.8 Eos # 0.3 10 Normal 0.0-0.5 Baso # 0.1 10 Normal 0.0-0.2 Comprehensive Metabolic Profil 09/09/2020 [facility] [phone] Glucose, Fasting 121 mg/dL High 70-100 Blood [...] Ratio 1.1 Low 1.2-2.2 Lipid Panel 09/09/2020 [facility] [phone] Triglycerides Level 127 mg/dL Normal <150 Cholesterol Level 200 mg/dL Normal <200 HDL Cholesterol 66 mg/dL Normal >40 LDL Cholesterol 109 mg/dL High <100 Non-HDL-C 134 mg/dL Normal Cholesterol Risk Ratio 3.030 Normal <5 Order 09/09/2020 [facility] [address] [place] [address] [phone] Electrocardiogram <pending> 1 Units are mL/min/1.73 m2 Chronic Kidney Disease Staging per NKF: Stage I & II GFR >=60 Normal to Mildly Decreased Stage III GFR 30-59 Moderately Decreased Stage IV GFR 15-29 Severely Decreased Stage V GFR <15 Very Little GFR Left ESRD GFR <15 on DOUBLE SURFACE OPERATOR 2 Units are mL/min/1.73 m2 Chronic Kidney Disease Staging per NKF: Stage I & II GFR >=60 Normal to Mildly Decreased Stage III GFR 30-59 Moderately Decreased Stage IV GFR 15-29 Severely Decreased Stage V GFR <15 Very Little GFR Left ESRD GFR <15 on DOUBLE SURFACE OPERATOR Procedures Date Code Description Status 12/24/2020 56805 Office/Outpatient Established Mo d MDM 30-39 Min Completed 10/15/2020 75347 Office/Outpatient Established Mo d MDM 30-39 Min Completed 09/09/2020 04969 Office/Outpatient Established Mo d MDM 30-39 Min Completed 09/09/2020 47165 EKG Interpretation & Report Comp leted 10/06/2018 [id number] Mammogram Completed 11/08/2014 [id number] Mammogram Completed 09/13/2013 [id number] Mammogram Completed 09/13/2013 [id number] Bone Mineral Density Test Comple Bauzaar Description No Information Available Encounters Type Date Location Provider Dx Diagnosis Office Visit 12/24/2020 8:45a Main Office Pleskach, Jeana, SAMPLES AND REPAIRS PREPARER Z01.8 18 Encounter for other preprocedural examination J44.9 Chronic obstructive pulmonar y disease, unspecified E78.2 Mixed hyperlipidemia F33.1 Major depressive disorder, r ecurrent, moderate K80.80 Other cholelithiasis without obstruction Office Visit 10/15/2020 1:45p Main Office Pleskach, Jeana, SAMPLES AND REPAIRS PREPARER R10.1 1 Right upper quadrant pain Office Visit 09/09/2020 8:00a Main Office Pleskach, Jeana, SAMPLES AND REPAIRS PREPARER J31.0 Chronic rhinitis R05 Cough E78.2 Mixed hyperlipidemia J44.9 Chronic obstructive pulmonar y disease, unspecified F33.1 Major depressive disorder, r ecurrent, moderate I49.9 Cardiac arrhythmia, unspecif ied Assessments Date Code Description Provider 12/24/2020 Z01.818 Encounter for other preprocedura l examination Pleskach, Jeana, SAMPLES AND REPAIRS PREPARER 12/24/2020 J44.9 Chronic obstructive pulmonary di sease, unspecified Pleskach, Jeana, SAMPLES AND REPAIRS PREPARER 12/24/2020 E78.2 Mixed hyperlipidemia Pleskach, M cody, SAMPLES AND REPAIRS PREPARER 12/24/2020 F33.1 Major depressive disorder, recur rent, moderate Pleskach, Jeana, SAMPLES AND REPAIRS PREPARER 12/24/2020 K80.80 Other cholelithiasis without obs truction Pleskach, Jeana, SAMPLES AND REPAIRS PREPARER 10/15/2020 R10.11 Right upper quadrant pain Pleska ch, Jeana, SAMPLES AND REPAIRS PREPARER 09/09/2020 J31.0 Chronic rhinitis Pleskach, Jeana , SAMPLES AND REPAIRS PREPARER 09/09/2020 R05 Cough Jeana Cotton, SAMPLES AND REPAIRS PREPARER 09/09/2020 E78.2 Mixed hyperlipidemia Yury Edda ross, SAMPLES AND REPAIRS PREPARER 09/09/2020 J44.9 Chronic obstructive pulmonary di sease, unspecified Jeana Cotton, SAMPLES AND REPAIRS PREPARER 09/09/2020 F33.1 Major depressive disorder, recur rent, moderate Jeana Cotton, SAMPLES AND REPAIRS PREPARER 09/09/2020 I49.9 Cardiac arrhythmia, unspecified Jeana Cotton, SAMPLES AND REPAIRS PREPARER Plan of Treatment Future Appointment(s):* 03/11/2021 8:00 am - Jeana Cotton FNP at Main Office 12/24/2020 - Jeana Cotton FNP* Z01.818 Encounter for other preprocedural examination* Comments:* EKG done 09/09 - NSR without acute changePatient is medically optimized for the planned procedure. * Recommendations:* stop taking multivitamins until after surgery No aspirin, ibuprofen, naproxen or other NSAID * J44.9 Chronic obstructive pulmonary disease, unspecified* Comments:* controlled on Advair, using albuterol as needed * E78.2 Mixed hyperlipidemia * F33.1 Major depressive disorder, recurrent, moderate* Comments:* doing well on current medications * K80.80 Other cholelithiasis without obstruction* Comments:* scheduled for gallbladder removal Functional Status Functional Condition Comment Date Status Glasses Active Independent with all ADL's Activ e Independent with all IADL's Acti ve Complete dentures Complete upper, partial lower Active Mental Status Mental Condition Comment Date Status None Active Referrals Refer to Reason for Referral Status Appt Date Orlando Rankin, DO Please evaluate patient for gallstones removal. Patient is requesting Dr. Rankin. Thank you. Closed 11/12/[address] [place] [id number] [phone]
[2021-01-06] MEDS ORDERED: fentaNYL 100 MCG/2 ML INJECTION (J3010) As Ordered ONE ×3 (11:47→11:58)
[2021-01-06] MEDS ORDERED: propofoL 200 MG/20 ML VIAL As Ordered ONE (11:47)
[2021-01-06] MEDS ORDERED: dexameTHASONE 4 MG/ML 1ML VIAL (J1100 PER 1MG) As Ordered ONE (11:47)
[2021-01-06] MEDS ORDERED: MIDAZOLAM INJ 2MG/2ML VIAL (J2250 PER 1MG) As Ordered ONE (11:47)
[2021-01-06] MEDS ORDERED: ONDANSETRON 4MG/2ML VIAL As Ordered ONE (11:47)
[2021-01-06] MEDS ORDERED: LIDOCAINE 2% 100MG/5ML SDV (FOR ANES.) As Ordered ONE (11:47)
[2021-01-06] MEDS ORDERED: ROCURONIUM BROMIDE 50 MG/5 ML VIAL As Ordered ONE (11:47)
[2021-01-06] MEDS ORDERED: BUPIVACAINE/EPIN 0.25% 30 ML VIAL As Ordered ONE (12:11)
[2021-01-06] MEDS ORDERED: PHENYLephrine 500MCG 5ML (100MCG/ML) SYRINGE As Ordered ONE (12:45)
[2021-01-06] MEDS ORDERED: ACETAMINOPHEN 1000MG 100ML IV BTL (OFIRMEV) (J0131 PER 10MG) As Ordered ONE (13:34)
[2021-01-06] MEDS ORDERED: fentaNYL 100 MCG/2 ML INJECTION (J3010) IV PRN (14:30)
[2021-01-06] MEDS ORDERED: ONDANSETRON 4MG/2ML VIAL IV PRN (14:30)
[2021-01-06] MEDS ORDERED: LR 1,000 ML IV SCH (14:30)
--- NOTE | 2021-01-06 14:34 | RO ---
OPERATIVE NOTE DATE OF OPERATION: 01/06/2021 PREOPERATIVE DIAGNOSIS: Symptomatic cholelithiasis. POSTOPERATIVE DIAGNOSIS: Symptomatic cholelithiasis. PROCEDURE: Robotic cholecystectomy. SURGEON: Orlando Rankin DO WIRELESS CONSULTANT: FANNIE Hill ANESTHESIA: General. ESTIMATED BLOOD LOSS: 5 COMPLICATIONS: None. INDICATIONS FOR PROCEDURE: The patient is a 60-year-old female who presents with persistent right upper quadrant pain, found to have symptomatic cholelithiasis. Recommendation was to proceed with a robotic cholecystectomy. Risks and benefits of the procedure not limited to but include bleeding, infection, hernias, damage to surrounding structures, need for further surgery were discussed in detail with the patient. Informed consent was obtained and procedure is planned. DESCRIPTION OF PROCEDURE: The patient was brought back to operating room 7. After sufficient sedation, the abdomen was sterilely prepped and draped. Next, a timeout was done to confirm proper patient and proper procedure. Following that, an 8 mm incision was made in the left upper quadrant. A Veress needle was inserted and the abdomen was insufflated to 15 mmHg. The Veress needle was then removed. An 8 mm OptiView port was used to gain access to the abdomen. Once the abdomen was entered, three more ports were placed across the upper abdomen and in the right upper quadrant. Once the ports were all placed, the robot was docked to the ports. Next from the console, the fundus and gallbladder were elevated towards the right shoulder. The cystic duct and cystic artery were carefully dissected free, carefully doubly clipped and cut. The gallbladder was then dissected free from the gallbladder fossa and removed intact, placed inside of an EndoCatch bag and brought out through the right lateral port site. Once the gallbladder was removed, the abdomen was examined to confirm hemostasis. The ports were removed. The abdomen was desufflated. Skin incisions were closed with 4-0 Vicryl subcuticular suture. The abdomen was cleaned and dried. Steri-Strips, 4x4 and tape were applied.
[2021-01-06] MEDS: oxyCODONE 5MG TAB PO PRN ×2 (14:41→15:16)
[2021-01-06 17:00] VITALS: BP 143/78
== END 2021-01-06 17:13 | disposition home or self-care (01) ==
LOC: M SDC 10:47
PROVIDERS: ATTEND Surgery
DX: K80.10 Calculus of gallbladder with chronic cholecystitis without obstruction (principal); J44.9 Chronic obstructive pulmonary disease, unspecified; E78.5 Hyperlipidemia, unspecified; F33.1 Major depressive disorder, recurrent, moderate; F41.9 Anxiety disorder, unspecified; R13.10 Dysphagia, unspecified; Z79.899 Other long term (current) drug therapy; Z79.51 Long term (current) use of inhaled steroids
CPT/HCPCS: 47562; 88304; J0131; J1100; J1885; J2250; J2370; J2405; J3010; S2900

== ENCOUNTER → 2021-08-06 | Outpatient (CLI) | payer OTHER ==
[~2021-08-06] MED LIST changes: -KETOROLAC 60MG 2ML VIAL As Ordered ONE; -LIDOCAINE 1% MDV 20ML VIAL SQ PRN; -LR 1,000 ML IV ONE; -PARO12.510; +PARO12.56; -SUGAMMADEX SODIUM 500 MG/5 ML VIAL (BRIDION) As Ordered ONE
== END ==
LOC: M LABSMTC 11:51
PROVIDERS: ATTEND Anesthesiology
DX: Z11.52 Encounter for screening for COVID-19 (principal); Z20.822 Contact with and (suspected) exposure to COVID-19

== ENCOUNTER 2021-08-11 12:24 | Day surgery (SDC) | payer OTHER ==
[~2021-08-11] VITALS: Ht 167.6 cm; Wt 86.2 kg
[~2021-08-11 12:24] MED LIST changes: +NS 1,000 ML IV ONE
[2021-08-11] MEDS ORDERED: LIDOCAINE 2% 100MG/5ML SDV (FOR ANES.) As Ordered ONE (13:21)
[2021-08-11] MEDS ORDERED: propofoL 500 MG/50 ML VIAL As Ordered ONE (13:21)
[2021-08-11] MEDS ORDERED: fentaNYL 100 MCG/2 ML INJECTION As Ordered ONE (13:21)
[2021-08-11] MEDS ORDERED: GLYCOPYRROLATE INJ 0.2 MG/ML 2 ML VIAL As Ordered ONE (14:34)
[2021-08-11 15:13] VITALS: BP 123/67
== END 2021-08-11 15:24 | disposition home or self-care (01) ==
LOC: M OPP 12:24
PROVIDERS: ATTEND Internal Medicine Gastroenterology
DX: Z12.11 Encounter for screening for malignant neoplasm of colon (principal); Z86.010 Personal history of colon polyps; D12.4 Benign neoplasm of descending colon; D12.7 Benign neoplasm of rectosigmoid junction; K57.30 Diverticulosis of large intestine without perforation or abscess without bleeding; K21.00 Gastro-esophageal reflux disease with esophagitis, without bleeding; K29.70 Gastritis, unspecified, without bleeding; R11.0 Nausea; Z79.899 Other long term (current) drug therapy; F17.210 Nicotine dependence, cigarettes, uncomplicated; Z80.1 Family history of malignant neoplasm of trachea, bronchus and lung; Z80.3 Family history of malignant neoplasm of breast
CPT/HCPCS: 43239; 45385; 88305; J3010

== ENCOUNTER → 2021-10-15 | Outpatient (CLI) | payer OTHER ==
[~2021-10-15] MED LIST changes: -NS 1,000 ML IV ONE
== END ==
LOC: M RAD 07:01
PROVIDERS: ATTEND Nurse Practitioner Family
DX: Z12.2 Encounter for screening for malignant neoplasm of respiratory organs (principal); F17.210 Nicotine dependence, cigarettes, uncomplicated; J43.9 Emphysema, unspecified; R91.8 Other nonspecific abnormal finding of lung field; I70.0 Atherosclerosis of aorta; I25.10 Atherosclerotic heart disease of native coronary artery without angina pectoris

== ENCOUNTER → 2021-11-11 | Outpatient (CLI) | payer OTHER | LOC: M CARPUL 07:02 | PROVIDERS: ATTEND Internal Medicine Pulmonary Disease | DX: J44.9 Chronic obstructive pulmonary disease, unspecified (principal) ==

== ENCOUNTER → 2022-06-16 | Outpatient (CLI) | payer OTHER ==
[2022-06-16 13:08] LABS: BASO # 0.1 10^3/uL (0.0-0.2); BASO % 0.6 % (0.0-1.0); EOS # 0.3 10^3/uL (0.0-0.5); EOS % 2.4 % (0.0-3.0); HEMATOCRIT 47.1 % (36.0-47.0); HEMOGLOBIN 15.8 g/dl (12.0-15.5); LYMPH # 3.5 10^3/uL (1.5-5.0); LYMPH % 32.9 % (24.0-44.0); MEAN CORPUSCULAR HEMOGLOBIN 32.4 pg (27.0-33.0); MEAN CORPUSCULAR HGB CONC 33.5 g/dl (32.0-36.5); MEAN CORPUSCULAR VOLUME 96.5 fl (80.0-96.0); MONO # 0.8 10^3/uL (0.0-0.8); MONO % 7.4 % (2.0-8.0); NEUTROPHILS % 56.5 % (36.0-66.0); PLATELET COUNT, AUTOMATED 325 10^3/uL (150-450); RED BLOOD COUNT 4.88 10^6/uL (4.00-5.40); WHITE BLOOD COUNT 10.6 10^3/uL (4.0-10.0)
[2022-06-16 13:43] LABS: ALBUMIN 3.5 G/DL (3.2-5.2); ALKALINE PHOSPHATASE 100 U/L (46-116); ALT/SGPT 13 U/L (7.0-40); AST/SGOT 17 U/L (<34); BILIRUBIN,TOTAL 0.7 MG/DL (0.3-1.2); BLOOD UREA NITROGEN 13 MG/DL (9-23); CARBON DIOXIDE LEVEL 29 MMOL/L (20-31); CHLORIDE LEVEL 103 MMOL/L (98-107); CHOLESTEROL LEVEL 237 MG/DL (<200); CHOLESTEROL RISK RATIO 3.52 (<5); CREATININE FOR GFR 0.64 MG/DL (0.55-1.30); FERRITIN 40.9 NG/ML (7.3-270.7); FREE T4 1.11 NG/DL (0.89-1.76); GLOMERULAR FILTRATION RATE > 60.0 (>45); GLUCOSE, FASTING 102 MG/DL (74-106); HDL CHOLESTEROL 67.2 MG/DL (>40); IRON (FE) 131 UG/DL (50-170); NON-HDL-C 169.8 MG/DL; PERCENT SATURATION 37.9 % (13.2-45.0); POTASSIUM SERUM 4.4 MMOL/L (3.5-5.1); SODIUM LEVEL 137 MMOL/L (136-145); THYROID STIMULATING HORMONE 0.579 uIU/ML (0.55-4.78); TOTAL 25(OH) VITAMIN D 25.8 NG/ML (20.0-100.0); TOTAL IRON BINDING CAPACITY 346 UG/DL (250-425); TOTAL PROTEIN 6.5 G/DL (5.7-8.2); TRIGLYCERIDES LEVEL 99 MG/DL (<150)
== END ==
LOC: M WUC 10:47
PROVIDERS: ATTEND Nurse Practitioner Family
DX: Z00.00 Encounter for general adult medical examination without abnormal findings (principal); R53.83 Other fatigue

== ENCOUNTER → 2022-11-02 | Outpatient (CLI) | payer OTHER ==
[~2022-11-02] MED LIST changes: +FLUT50SP17 INH; -FLUTISP INH
== END ==
LOC: M RAD 07:43
PROVIDERS: ATTEND Nurse Practitioner Family
DX: F17.210 Nicotine dependence, cigarettes, uncomplicated (principal)

== ENCOUNTER → 2022-12-07 | Outpatient (CLI) | payer OTHER | LOC: M WHC 08:31 | PROVIDERS: ATTEND Nurse Practitioner Family | DX: Z12.31 Encounter for screening mammogram for malignant neoplasm of breast (principal); Z13.820 Encounter for screening for osteoporosis; M89.9 Disorder of bone, unspecified ==

== ENCOUNTER → 2024-02-08 | Outpatient (REF) | payer OTHER ==
[~2024-02-08] MED LIST changes: -FLUT50SP17 INH; +FLUTISP INH
[2024-02-08 17:38] LABS: APPEARANCE, URINE HAZY (CLEAR); BACTERIA, URINE AUTO 1+ (NEGATIVE); BILIRUBIN, URINE AUTO NEGATIVE (NEGATIVE); BLOOD, URINE BLOOD 1+ (NEGATIVE); COLOR, URINE YELLOW (YELLOW); GLUCOSE, URINE (UA) AUTO NEGATIVE (NEGATIVE); KETONE, URINE AUTO NEGATIVE (NEGATIVE); LEUKOCYTE ESTERASE, URINE AUTO 3+ (NEGATIVE); NITRITE, URINE AUTO POSITIVE (NEGATIVE); PROTEIN, URINE AUTO NEGATIVE (NEGATIVE); RBC, URINE AUTO 1 /HPF (0-3); SPECIFIC GRAVITY URINE AUTO 1.015 (1.002-1.035); SQUAMOUS EPITHELIAL CELL UR AU 1 /HPF (0-6); UROBILINOGEN, URINE AUTO 0.2 mg/dL (0.0-2.0); WBC, URINE AUTO TNTC /HPF (0-3)
== END ==
LOC: M LAB REF 16:25
PROVIDERS: ATTEND Physician Assistant Medical
DX: N39.0 Urinary tract infection, site not specified (principal)

== ENCOUNTER → 2024-04-18 | Outpatient (CLI) | payer OTHER ==
[~2024-04-18] MED LIST changes: -ADV250INH INH; +ADVA1AER9 INH
== END ==
LOC: M RAD 13:25
PROVIDERS: ATTEND Nurse Practitioner Family
DX: Z12.2 Encounter for screening for malignant neoplasm of respiratory organs (principal); F17.210 Nicotine dependence, cigarettes, uncomplicated

== ENCOUNTER → 2024-06-01 | Outpatient (REF) | payer OTHER ==
[2024-06-03 13:01] LABS: HPV APTIMA Not Detected (Not Detected)
== END ==
LOC: M LAB REF 18:09
PROVIDERS: ATTEND Nurse Practitioner Family
DX: Z12.4 Encounter for screening for malignant neoplasm of cervix (principal)
CPT/HCPCS: 87624; G0123